=== PATIENT | male | born 1960 | race Hispanic/Latino ===

== ENCOUNTER 2018-07-15 15:13 | Inpatient (IN) | payer SELFPAY ==
[2018-07-15] MEDS ORDERED: DUONEB *Not for PRN Use IH ONE ×3 (15:30→15:33)
[2018-07-15] MEDS ORDERED: SOLU-Medrol IV ONE (15:58)
[2018-07-15] MEDS ORDERED: MAGNESIUM SULFATE 2GM/50ML 2 GM/50 ML BAG IV ONE (15:58)
--- NOTE | 2018-07-15 16:01 | Emergency Department Report ---
ED Shortness of Breath HPI - General Chief Complaint: Dyspnea/Respdistress Stated Complaint: SAYRA Time Seen by Provider: 07/15/18 15:30 Source: patient Mode of arrival: Ambulatory Limitations: No Limitations - History of Present Illness Initial Comments: 58-year-old male with no significant past medical history versus possible complaints of wheezing, cough, shortness of breath progressively worsening 2 days. Patient does smoke cigarettes daily. Complains of a cough productive of brown sputum. He denies fever, hemoptysis, calf tenderness, or leg edema. He does not have a primary care doctor and has not seen a physician in many years. - Related Data Allergies Allergy/AdvReac Type Severity Reaction Status Date / Time No Known Allergies Allergy Unverified 07/15/18 15:15 ED Review of Systems ROS: Stated complaint: SAYRA Other details as noted in HPI Comment: All other systems reviewed and negative ED Past Medical Hx - Past Medical History Previous Medical History?: No - Social History Smoking Status: Current Every Day Smoker ED Physical Exam - General Limitations: No Limitations - Other Other exam information: General: No limitations, patient is alert in no acute distress Head exam: Atraumatic, normocephalic Eyes exam: Normal appearance ENT: Moist mucous membrane Neck exam: Normal inspection, full range of motion, no meningismus nontender Respiratory exam: Tachypnea, wheezing, accessory muscle use Cardiovascular: Normal rate and rhythm, normal heart sounds Abdomen: Soft, nondistended, and nontender, with normal bowel sounds, no rebound, or guarding Extremity: Full range of motion normal inspection no deformity, tenderness or edema Back: Normal Inspection, full range of motion, no tenderness Neurologic: Alert, oriented x3, cranial nerves intact, no motor or sensory deficit Psychiatric: normal affect, normal mood Skin: Warm, dry, intact ED Course Vital Signs 07/15/18 07/15/18 07/15/18 15:36 15:45 15:55 Temperature 98.0 F Pulse Rate 87 75 Pulse Rate [ 76 Anterior Bilateral Throughout] Respiratory 24 18 Rate Respiratory 25 H Rate [Anterior Bilateral Throughout] Blood Pressure Blood Pressure 142/102 [Right] O2 Sat by Pulse 94 Oximetry 07/15/18 07/15/18 07/15/18 16:00 16:02 16:15 Temperature Pulse Rate 74 72 Pulse Rate [ 72 Anterior Bilateral Throughout] Respiratory 21 24 Rate Respiratory 22 Rate [Anterior Bilateral Throughout] Blood Pressure 119/99 119/99 Blood Pressure [Right] O2 Sat by Pulse 100 99 Oximetry 07/15/18 07/15/18 07/15/18 16:30 16:45 17:00 Temperature Pulse Rate 70 71 67 Pulse Rate [ Anterior Bilateral Throughout] Respiratory 24 23 28 H Rate Respiratory Rate [Anterior Bilateral Throughout] Blood Pressure 129/94 129/94 137/86 Blood Pressure [Right] O2 Sat by Pulse 97 98 95 Oximetry 07/15/18 07/15/18 17:15 17:29 Temperature Pulse Rate 94 H 78 Pulse Rate [ Anterior Bilateral Throughout] Respiratory 26 H 17 Rate Respiratory Rate [Anterior Bilateral Throughout] Blood Pressure 129/94 165/105 Blood Pressure [Right] O2 Sat by Pulse 97 99 Oximetry ED Medical Decision Making - Lab Data Result diagrams: 07/15/18 15:41 07/15/18 15:41 Lab Results 07/15/18 07/15/18 07/15/18 Range/Units 15:41 15:41 15:41 WBC 4.1 L (4.5-11.0) K/mm3 RBC 4.50 (3.65-5.03) M/mm3 Hgb 14.4 (11.8-15.2) gm/dl Hct 42.1 (35.5-45.6) % MCV 93 (84-94) fl MCH 32 (28-32) pg MCHC 34 (32-34) % RDW 13.6 (13.2-15.2) % Plt Count 102 L (140-440) K/mm3 Lymph % (Auto) 14.0 (13.4-35.0) % [place] % (Auto) 10.1 H (0.0-7.3) % Eos % (Auto) 1.6 (0.0-4.3) % Baso % (Auto) 0.7 (0.0-1.8) % Lymph # 0.6 L (1.2-5.4) K/mm3 [place] # 0.4 (0.0-0.8) K/mm3 Eos # 0.1 (0.0-0.4) K/mm3 Baso # 0.0 (0.0-0.1) K/mm3 Seg Neutrophils % 73.6 H (40.0-70.0) % Seg Neutrophils # 3.0 (1.8-7.7) K/mm3 PT 14.0 (12.2-14.9) Sec. INR 1.02 (0.87-1.13) APTT 24.5 (24.2-36.6) Sec. Sodium 141 (137-145) mmol/L Potassium 3.6 (3.6-5.0) mmol/L Chloride 106.1 (98-107) mmol/L Carbon Dioxide 26 (22-30) mmol/L Anion Gap 13 mmol/L BUN 11 (9-20) mg/dL Creatinine 0.6 L (0.8-1.5) mg/dL Estimated GFR > 60 ml/min BUN/Creatinine Ratio 18 % Glucose 101 H (75-100) mg/dL Calcium 8.4 (8.4-10.2) mg/dL Total Bilirubin 1.50 H (0.1-1.2) mg/dL AST 52 H (5-40) units/L ALT 41 (7-56) units/L Alkaline Phosphatase 128 (35-129) units/L Troponin T < 0.010 (0.00-0.029) ng/mL Total Protein 6.8 (6.3-8.2) g/dL Albumin 3.4 L (3.9-5) g/dL Albumin/Globulin Ratio 1.0 % - EKG Data -: EKG Interpreted by Me EKG shows normal: sinus rhythm, axis (qrs 10), QRS complexes (qrs 10), ST-T waves (no stemi) Rate: normal (65) - Radiology Data Radiology results: report reviewed PROCEDURE: XR CHEST 1V AP TECHNIQUE: Single AP chest HISTORY: SOB, COPD, cough COMPARISONS: No prior radiographs FINDINGS: Cardiomediastinal silhouette is within normal limits. There is no evidence of airspace consolidation or pleural effusions. The pulmonary vasculature is within normal limits. IMPRESSION: No radiographic evidence of acute disease.. - Medical Decision Making wheeze + smoker, diag copd/acute bronchitis continued wheeze despite ed tx plan to admit tx with solumedrol, mag, albuterol, atrovent, azithromycin. - Differential Diagnosis pneumonia, bronchitis, COPD Critical Care Time: No Critical care attestation.: If time is entered above; I have spent that time in minutes in the direct care of this critically ill patient, excluding procedure time. ED Disposition Clinical Impression: Acute bronchitis, Smoker, Wheezing Disposition: OP ADMIT IP TO THIS HOSP Is pt being admited?: Yes Condition: Stable Time of Disposition: 18:28 (DR Dudley/hosp)
[2018-07-15 16:13] LABS: Basophils % (Auto) 0.7 % (0.0-1.8); Eosinophils # (Auto) 0.1 K/mm3 (0.0-0.4); Eosinophils % (Auto) 1.6 % (0.0-4.3); Hematocrit 42.1 % (35.5-45.6); Hemoglobin 14.4 gm/dl (11.8-15.2); Lymphocytes # (Auto) 0.6 K/mm3 (1.2-5.4); Mean Corpuscular HGB Conc 34 % (32-34); Mean Corpuscular Volume 93 fl (84-94); Monocytes # (Auto) 0.4 K/mm3 (0.0-0.8); Monocytes % (Auto) 10.1 % (0.0-7.3); Platelet Count 102 K/mm3 (140-440); Red Cell Distribution Width 13.6 % (13.2-15.2)
--- NOTE | 2018-07-15 16:21 | XRay Report ---
PROCEDURE: XR CHEST 1V AP TECHNIQUE: Single AP chest HISTORY: SOB, COPD, cough COMPARISONS: No prior radiographs FINDINGS: Cardiomediastinal silhouette is within normal limits. There is no evidence of airspace consolidation or pleural effusions. The pulmonary vasculature is within normal limits. IMPRESSION: No radiographic evidence of acute disease.. This document is electronically signed by Tam Mirza MD., July 15 2018 04:19:37 PM ET
[2018-07-15 16:22] LABS: INR 1.02 (0.87-1.13); Partial Thromboplastin Time 24.5 Sec. (24.2-36.6)
[2018-07-15 16:30] LABS: Alanine Aminotransferase 41 units/L (7-56); Albumin 3.4 g/dL (3.9-5); BUN/Creatinine Ratio 18; Blood Urea Nitrogen 11 mg/dL (9-20); Calcium 8.4 mg/dL (8.4-10.2); Hemolysis Index 20
[2018-07-15] MEDS ORDERED: PROVENTIL IH ONE (18:22)
[2018-07-15] MEDS ORDERED: TYLENOL PO PRN (22:56)
[2018-07-15] MEDS ORDERED: ZOFRAN IV PRN (22:57)
[2018-07-15] MEDS ORDERED: RESTORIL PO PRN (22:58)
[2018-07-15] MEDS: SOLU-Medrol IV SCH (23:24)
[2018-07-16] MEDS: DUONEB *Not for PRN Use IH SCH ×7 (02:14→23:46)
[2018-07-16] MEDS: SOLU-Medrol IV SCH ×3 (05:30→22:08)
--- NOTE | 2018-07-16 08:00 | History and Physical Report ---
CHIEF COMPLAINT: Shortness of breath. Other complaints include wheezing and cough. HISTORY OF PRESENT ILLNESS: The patient is a 58-year-old male, who presented to the Emergency Room with complaint of shortness of breath and audible wheezing with cough going on for 2 days. The patient's cough is productive of brown sputum. There was no history of chest pain, no history of fever or chills and no history of nausea or vomiting or swelling in the ankles. The patient is a daily cigarette smoker. PAST MEDICAL HISTORY: Unremarkable. PAST SURGICAL HISTORY: Unremarkable. FAMILY HISTORY: Family history is noncontributory. SOCIAL HISTORY: The patient says he walks in a cooler that stays always at about 40 degrees Fahrenheit and smokes cigarette daily and does not use illicit drugs, is not known whether the patient drinks alcohol. MEDICATIONS: The patient states he said he uses his son's nebulizer since his shortness of breath has been going on and also uses [id number] medications. ALLERGIES: There are no known drug allergies. REVIEW OF SYSTEMS: CONSTITUTIONAL: There is no fever, no chills, no diaphoresis. HEENT: There is no headache or sore throat. CARDIOVASCULAR SYSTEM: There is no chest pain or orthopnea. RESPIRATORY SYSTEM: Shortness of breath is present. Cough is present. GASTROINTESTINAL SYSTEM: There is no nausea, no vomiting, no abdominal pain, diarrhea or constipation. NEUROLOGICAL SYSTEM: There is no numbness, no dizziness, no altered mental status. MUSCULOSKELETAL SYSTEM: There is no joint pain or swelling. DERMATOLOGICAL SYSTEM: There is no skin rash or itching. GENITOURINARY SYSTEM: There is no dysuria, hematuria or flank pain. Rest of system review is normal. PHYSICAL EXAMINATION: GENERAL: At the time of exam, the patient was found to be alert, oriented x 3 and in mild to moderate distress due to shortness of breath and wheezing. VITAL SIGNS: At the initial time of presentation showed temperature of 98 degrees Fahrenheit, pulse of 87, respirations 24, blood pressure 142/102, O2 sat of 94% on room air. HEENT: Show pupils to be equal, round, reactive to light and accommodating. Extraocular muscles are intact. NECK: Neck is supple with no JVD or carotid bruit. CARDIOVASCULAR SYSTEM: Show normal first and second heart sounds with no gallops or murmurs. RESPIRATORY SYSTEM: Showed reduced air entry on both sides of the lung with audible expiratory wheezing. There is no use of accessory respiratory muscles. GASTROINTESTINAL SYSTEM: Show abdomen to be full, soft, nontender with no organomegaly or rigidity. NEUROLOGIC: Shows no focal deficits. MUSCULOSKELETAL SYSTEM: Show no joint swelling or tenderness. DERMATOLOGICAL SYSTEM: Show no skin rash. GENITOURINARY SYSTEM: Show no cause of costovertebral angle tenderness. PERTINENT LABORATORY DATA AND IMAGING STUDIES: The patient had a chest done that shows no acute cardiopulmonary lesions. The patient's CBC showed low white count of 4.1 with normal hemoglobin and normal hematocrit. CBC differential showed elevated segmented neutrophil count of 73.6%. Coagulation studies were unremarkable. The patient's chemistry shows slightly elevated total bilirubin of 1.5 with liver transaminases showing high AST of 52 and normal ALT of 41. Rest of the patient's chemistry showed a low albumin level of 3.4. DIAGNOSES: 1. Acute bronchitis. 2. Dyspnea. PLAN OF CARE: 1. The patient will be admitted to medical floor, on remote telemetry. 2. The patient will be on IV ceftriaxone 1 gram daily and IV Zithromax 500 mg daily. 3. The patient will be on DuoNeb nebulizer q.i.d. and will be on IV Solu-Medrol 60 mg q. 8 hours. 4. The patient will be on p.r.n. medications like Tylenol 650 mg by mouth every 4 hours for fever and headache and IV Zofran 4 mg every 8 hours for nausea and vomiting, also the patient will be on temazepam or Restoril 15 mg at bedtime for insomnia. 5. The patient will be on Robitussin-DM 10 mL every 4 hours as needed for cough and will be on oxygen by nasal cannula at 2 liters per minute. 6. The patient's diet will be regular diet. 7. The patient's DVT prophylaxis will be through heparin 5000 units subcutaneous q. 12 and sequential compressive device applied to the lower extremity. JOB# [id number] OCN/NTS
[2018-07-16] MEDS: HEPARIN SUB-Q SCH ×2 (10:00→10:19)
[2018-07-16] MEDS: ROCEPHIN/NS 1 GM/50 ML 1 GM/50 ML BAG IV SCH (10:20)
[2018-07-16] MEDS: HABITROL TD SCH (10:39)
[2018-07-16] MEDS: ZITHROMAX 500 MG in NACL 0.9% 250ML 250 ML IV SCH (11:41)
--- NOTE | 2018-07-16 13:38 | Progress Note ---
Assessment and Plan Assessment and plan: Patient is 58 yo man with history of tobacco dependency and asthma who presented to [facility] ED with cough, sob and wheezing. He lost his 5 months ago and has moved in with his brother. He has a nebulizer at home but it was not working. He does not have O2 -Acute brochospasm, suspected AE COPD vs asthma: treat with iv steroids, iv abx, nebs, consulted Pulmonology -Tobacco dependency: drug and alcohol counsellor on stopping and offered nicotine patch -Thrombocytopenia with elevated isolated AST and high bilirubin, normal coags: consulted GI and get liver ultrasound, check hepatitis panel also -Severe foot callus, public health training assistant evaluated and recommended branch employment coordinator and I placed a consult to Dr. Pierre and Dr. Trujillo History Interval history: Patient was seen and examined. Follow-up on current diagnosis of sob. Overnight uneventful. Patient denies any chest pain, nausea/vomiting or severe headaches. Imaging, nursing note, chart, labs and old chart reviewed. Discussed with patient. Hospitalist Physical - Physical exam Narrative exam: GEN: WDWN, NAD, Awake, Alert, Orientated HEENT: NCAT, EOMI, PERRL, OP Clear NECK: supple, no adenopathy, no thyromegaly, no JVD CVS/HEART: RRR, normal S1S2, pulses present bilaterally CHEST/LUNGS: diminished bs bilateral, bilateral wheezing, Symmetrical chest expansion, good air entry bilaterally GI/Abdomen: soft, NTND, good bowel sounds, no guarding or rebound /Bladder: no suprapubic tenderness, no CVA or paraspinal tenderness EXT/Skin: foot callus MSK: FROM x 4 Neuro: CN 2-12 grossly intact, no new focal deficits Psych: calm - Constitutional Vitals: Temp Pulse Resp BP Pulse Ox 98.0 F 100 H 22 149/96 94 07/16/18 11:22 07/16/18 11:22 07/16/18 11:22 07/16/18 11:22 07/16/18 11:22 Results - Labs CBC & Chem 7: 07/15/18 15:41 07/15/18 15:41 Labs: Laboratory Last Values WBC 4.1 K/mm3 (4.5-11.0) L 07/15/18 15:41 RBC 4.50 M/mm3 (3.65-5.03) 07/15/18 15:41 Hgb 14.4 gm/dl (11.8-15.2) 07/15/18 15:41 Hct 42.1 % (35.5-45.6) 07/15/18 15:41 MCV 93 fl (84-94) 07/15/18 15:41 MCH 32 pg (28-32) 07/15/18 15:41 MCHC 34 % (32-34) 07/15/18 15:41 RDW 13.6 % (13.2-15.2) 07/15/18 15:41 Plt Count 102 K/mm3 (140-440) L 07/15/18 15:41 Lymph % (Auto) 14.0 % (13.4-35.0) 07/15/18 15:41 [place] % (Auto) 10.1 % (0.0-7.3) H 07/15/18 15:41 Eos % (Auto) 1.6 % (0.0-4.3) 07/15/18 15:41 Baso % (Auto) 0.7 % (0.0-1.8) 07/15/18 15:41 Lymph # 0.6 K/mm3 (1.2-5.4) L 07/15/18 15:41 [place] # 0.4 K/mm3 (0.0-0.8) 07/15/18 15:41 Eos # 0.1 K/mm3 (0.0-0.4) 07/15/18 15:41 Baso # 0.0 K/mm3 (0.0-0.1) 07/15/18 15:41 Seg Neutrophils % 73.6 % (40.0-70.0) H 07/15/18 15:41 Seg Neutrophils # 3.0 K/mm3 (1.8-7.7) 07/15/18 15:41 PT 14.0 Sec. (12.2-14.9) 07/15/18 15:41 INR 1.02 (0.87-1.13) 07/15/18 15:41 APTT 24.5 Sec. (24.2-36.6) 07/15/18 15:41 Sodium 141 mmol/L (137-145) 07/15/18 15:41 Potassium 3.6 mmol/L (3.6-5.0) 07/15/18 15:41 Chloride 106.1 mmol/L (98-107) 07/15/18 15:41 Carbon Dioxide 26 mmol/L (22-30) 07/15/18 15:41 Anion Gap 13 mmol/L 07/15/18 15:41 BUN 11 mg/dL (9-20) 07/15/18 15:41 Creatinine 0.6 mg/dL (0.8-1.5) L 07/15/18 15:41 Estimated GFR > 60 ml/min 07/15/18 15:41 BUN/Creatinine Ratio 18 % 07/15/18 15:41 Glucose 101 mg/dL (75-100) H 07/15/18 15:41 Calcium 8.4 mg/dL (8.4-10.2) 07/15/18 15:41 Total Bilirubin 1.50 mg/dL (0.1-1.2) H 07/15/18 15:41 AST 52 units/L (5-40) H 07/15/18 15:41 ALT 41 units/L (7-56) 07/15/18 15:41 Alkaline Phosphatase 128 units/L (35-129) 07/15/18 15:41 Troponin T < 0.010 ng/mL (0.00-0.029) 07/15/18 15:41 Total Protein 6.8 g/dL (6.3-8.2) 07/15/18 15:41 Albumin 3.4 g/dL (3.9-5) L 07/15/18 15:41 Albumin/Globulin Ratio 1.0 % 07/15/18 15:41
[2018-07-16 16:41] LABS: Hepatitis C Virus Antibody Reactive (NonReactive)
--- NOTE | 2018-07-17 00:48 | Consultation ---
REFERRING PHYSICIAN: José Cox MD INDICATION: Increased liver function tests. HISTORY OF PRESENT ILLNESS: The patient is a 58-year-old white male, who was admitted for shortness of breath and cough. The patient reports known history of liver disease and denies history of chronic risk factors for liver disease including IV drug abuse. He reports no family history of liver disease. The patient subsequently came and was admitted for non-GI or liver related complaints, but GI is consulted for increased liver function test. PAST MEDICAL HISTORY: Negative. MEDICATIONS: Reviewed and updated in chart. SOCIAL HISTORY: Positive smoker and social alcohol. ALLERGIES: No known drug allergies. FAMILY HISTORY: Negative for colon cancer. REVIEW OF SYSTEMS: GENERAL: Reports weakness. HEENT: No visual complaints or tinnitus. PULMONARY: Reports shortness of breath, cough, and chest pain. GASTROINTESTINAL: Reports no complaints. All points of 13-point review of systems otherwise negative. PHYSICAL EXAMINATION: VITAL SIGNS: Temperature of 98.0, pulse 100, respirations 20, blood pressure 149/80. GENERAL: Fairly nourished male in no acute distress. HEENT: Pupils are equal, round and reactive. PULMONARY: Clear to auscultation bilaterally. CARDIOVASCULAR: Regular rate and rhythm. Normal S1 and S2. ABDOMEN: Positive bowel sounds, soft. SKIN: No obvious rashes. LABORATORY DATA: Pertinent for white count of 4, hemoglobin and hematocrit of 14.4 and 42.1, platelet count of 102. Coags within normal limits. Chem-7 within normal limits. ASSESSMENT: A 58-year-old male, admitted for cough, shortness of breath, now being seen by GI for slight increased LFTs with AST and ALT of 52 and 41 with a total bilirubin of 1.5. Possible fatty liver disease with no obvious signs of severe cirrhosis or other liver problems, though possible. Either way, the patient's management can be completed as an outpatient. PLAN: 1. We will get hepatitis-related serologies. 2. Liver ultrasound. 3. Avoid hepatotoxic drugs. 4. We will follow up on these results with the patient, told to make a followup appointment in the office after discharge for further evaluation. 5. Given stability from gastrointestinal and liver standpoint, we will complete workup as an outpatient, we will sign off, call if needed. JOB# [id number] CAB/NTS
[2018-07-17] MEDS: DUONEB *Not for PRN Use IH SCH ×3 (03:37→12:45)
[2018-07-17] MEDS: SOLU-Medrol IV SCH ×3 (06:00→22:41)
--- NOTE | 2018-07-17 08:40 | Progress Note ---
Assessment and Plan Assessment and plan: Patient is 58 yo man with history of tobacco dependency and asthma who presented to [facility] ED with cough, sob and wheezing. He lost his 5 months ago and has moved in with his brother. He has a nebulizer at home but it was not working. He does not have O2 -Acute brochospasm, suspected AE COPD vs asthma: treat with iv steroids, iv abx, nebs, consulted Pulmonology -Tobacco dependency: elder counselor on stopping and offered nicotine patch -Thrombocytopenia with elevated isolated AST and high bilirubin, normal coags: consulted GI and get liver ultrasound, check hepatitis panel also -Severe foot callus, shoemaker apprentice evaluated and recommended histology assistant and I placed a consult to Dr. Pierre and Dr. Trujillo Hepatitis C positive: GI to manage Liver u/s done but not read Podiatry, Ortho and Pulmonology hasn't seen yet History Interval history: Patient was seen and examined. Follow-up on current diagnosis of sob. Overnight uneventful. Patient denies any chest pain, nausea/vomiting or severe headaches. Imaging, nursing note, chart, labs and old chart reviewed. Discussed with patient. Hospitalist Physical - Physical exam Narrative exam: GEN: WDWN, NAD, Awake, Alert, Orientated HEENT: NCAT, EOMI, PERRL, OP Clear NECK: supple, no adenopathy, no thyromegaly, no JVD CVS/HEART: RRR, normal S1S2, pulses present bilaterally CHEST/LUNGS: diminished bs bilateral, bilateral wheezing, Symmetrical chest expansion, good air entry bilaterally GI/Abdomen: soft, NTND, good bowel sounds, no guarding or rebound /Bladder: no suprapubic tenderness, no CVA or paraspinal tenderness EXT/Skin: foot callus MSK: FROM x 4 Neuro: CN 2-12 grossly intact, no new focal deficits Psych: calm - Constitutional Vitals: Temp Pulse Resp BP Pulse Ox 98.3 F 90 20 128/78 96 07/17/18 05:26 07/17/18 05:26 07/17/18 05:26 07/17/18 05:26 07/17/18 05:26 Results - Labs CBC & Chem 7: 07/15/18 15:41 07/15/18 15:41 Labs: Laboratory Last Values WBC 4.1 K/mm3 (4.5-11.0) L 07/15/18 15:41 RBC 4.50 M/mm3 (3.65-5.03) 07/15/18 15:41 Hgb 14.4 gm/dl (11.8-15.2) 07/15/18 15:41 Hct 42.1 % (35.5-45.6) 07/15/18 15:41 MCV 93 fl (84-94) 07/15/18 15:41 MCH 32 pg (28-32) 07/15/18 15:41 MCHC 34 % (32-34) 07/15/18 15:41 RDW 13.6 % (13.2-15.2) 07/15/18 15:41 Plt Count 102 K/mm3 (140-440) L 07/15/18 15:41 Lymph % (Auto) 14.0 % (13.4-35.0) 07/15/18 15:41 [place] % (Auto) 10.1 % (0.0-7.3) H 07/15/18 15:41 Eos % (Auto) 1.6 % (0.0-4.3) 07/15/18 15:41 Baso % (Auto) 0.7 % (0.0-1.8) 07/15/18 15:41 Lymph # 0.6 K/mm3 (1.2-5.4) L 07/15/18 15:41 [place] # 0.4 K/mm3 (0.0-0.8) 07/15/18 15:41 Eos # 0.1 K/mm3 (0.0-0.4) 07/15/18 15:41 Baso # 0.0 K/mm3 (0.0-0.1) 07/15/18 15:41 Seg Neutrophils % 73.6 % (40.0-70.0) H 07/15/18 15:41 Seg Neutrophils # 3.0 K/mm3 (1.8-7.7) 07/15/18 15:41 PT 14.0 Sec. (12.2-14.9) 07/15/18 15:41 INR 1.02 (0.87-1.13) 07/15/18 15:41 APTT 24.5 Sec. (24.2-36.6) 07/15/18 15:41 Sodium 141 mmol/L (137-145) 07/15/18 15:41 Potassium 3.6 mmol/L (3.6-5.0) 07/15/18 15:41 Chloride 106.1 mmol/L (98-107) 07/15/18 15:41 Carbon Dioxide 26 mmol/L (22-30) 07/15/18 15:41 Anion Gap 13 mmol/L 07/15/18 15:41 BUN 11 mg/dL (9-20) 07/15/18 15:41 Creatinine 0.6 mg/dL (0.8-1.5) L 07/15/18 15:41 Estimated GFR > 60 ml/min 07/15/18 15:41 BUN/Creatinine Ratio 18 % 07/15/18 15:41 Glucose 101 mg/dL (75-100) H 07/15/18 15:41 Calcium 8.4 mg/dL (8.4-10.2) 07/15/18 15:41 Total Bilirubin 1.50 mg/dL (0.1-1.2) H 07/15/18 15:41 AST 52 units/L (5-40) H 07/15/18 15:41 ALT 41 units/L (7-56) 07/15/18 15:41 Alkaline Phosphatase 128 units/L (35-129) 07/15/18 15:41 Troponin T < 0.010 ng/mL (0.00-0.029) 07/15/18 15:41 Total Protein 6.8 g/dL (6.3-8.2) 07/15/18 15:41 Albumin 3.4 g/dL (3.9-5) L 07/15/18 15:41 Albumin/Globulin Ratio 1.0 % 07/15/18 15:41 Hepatitis A IgM Ab Non-reactive (NonReactive) 07/16/18 15:33 Hep B Core IgM Ab Non-reactive (NonReactive) 07/16/18 15:33 Hepatitis C Antibody Reactive (NonReactive) A 07/16/18 15:33
--- NOTE | 2018-07-17 10:50 | Ultrasound Report ---
PROCEDURE: US ABDOMEN LIMITED TECHNIQUE: Mitchell scale images were obtained of the right upper quadrant. HISTORY: liver disease COMPARISONS: None FINDINGS: Liver is normal in echotexture with no abnormal liver mass. Proximal aorta measures 2.8 cm. Gallbladder is surgically absent. CBD measures 1.8 mm in thickness. Right kidney normal in echotexture and measures 11.5 x 4.6 x 5.1 cm. No free fluid in the right upper quadrant. IMPRESSION: 1. Prior cholecystectomy, otherwise unremarkable study.. This document is electronically signed by Jen Young MD., July 17 2018 10:48:33 AM ET
[2018-07-17] MEDS: ROCEPHIN/NS 1 GM/50 ML 1 GM/50 ML BAG IV SCH (11:40)
[2018-07-17] MEDS: HABITROL TD SCH (11:49)
[2018-07-17] MEDS: ZITHROMAX 500 MG in NACL 0.9% 250ML 250 ML IV SCH (11:50)
--- NOTE | 2018-07-17 14:22 | Consultation ---
History of Present Illness Consult date: 07/17/18 Requesting physician: KATH MCKEON Reason for consult: COPD History of present illness: 58 y/o male admitted for COPD exacerbation. Patient is currently still smoking and has no plans on quitting. He is very depressed and speaking tangentially. He has never seen a lung physician, and takes no meds for breathing. Primary asked us to consult. Past History Past Medical History: No medical history Past Surgical History: No surgical history Social history: smoking, other ( but recently, now lives with brother, very depressed) Medications and Allergies Allergies Allergy/AdvReac Type Severity Reaction Status Date / Time No Known Allergies Allergy Unverified 07/15/18 15:15 Home Medications Medication Instructions Recorded Confirmed Last Taken Type No Known Home Medications [No 07/15/18 07/15/18 Unknown History Reported Home Medications] Active Meds: Active Medications Acetaminophen (Tylenol) 650 mg PO Q4H PRN PRN Reason: Fever >101 Albuterol/Ipratropium (Duoneb *Not For Prn Use*) 1 ampul IH Q4HRT [facility] Last Admin: 07/17/18 12:45 Dose: 1 ampul Documented by: Guaifenesin (Guaifenesin Dm Syrup) 10 ml PO Q4H PRN PRN Reason: Cough Last Admin: 07/16/18 22:08 Dose: 10 ml Documented by: Azithromycin 500 mg/ Sodium (Chloride) 250 mls @ 250 mls/hr IV Q24HR [facility] Last Admin: 07/17/18 11:50 Dose: 250 mls/hr Documented by: Ceftriaxone Sodium (Rocephin/Ns 1 Gm/50 Ml) 1 gm in 50 mls @ 100 mls/hr IV Q24HR [facility]; Protocol Last Admin: 07/17/18 11:40 Dose: 100 mls/hr Documented by: Methylprednisolone Sodium Succinate (Solu-Medrol) 60 mg IV Q8HR [facility] Last Admin: 07/17/18 06:00 Dose: 60 mg Documented by: Nicotine (Habitrol) 14 mg TD QDAY [facility] Last Admin: 07/17/18 11:49 Dose: 14 mg Documented by: Ondansetron HCl (Zofran) 4 mg IV Q8H PRN PRN Reason: Nausea And Vomiting Review of Systems All systems: negative Physical Examination Vital signs: Vital Signs Pulse Resp 76 25 H 07/15/18 15:36 07/15/18 15:36 General appearance: alert, other (dishelved) Eyes: non-icteric ENT: oropharynx dry Neck: supple Effort: normal Ascultation: Bilateral: wheezes Percussion: Bilateral: not dull Tactile fremitus: Bilateral: normal Cardiovascular: regular rate and rhythm Gastrointestinal: normoactive bowel sounds, soft Results - Laboratory Findings CBC and BMP: 07/15/18 15:41 07/15/18 15:41 PT/INR, D-dimer PT 14.0 Sec. (12.2-14.9) 07/15/18 15:41 INR 1.02 (0.87-1.13) 07/15/18 15:41 Abnormal lab findings: Abnormal Labs 07/15/18 07/15/18 07/16/18 15:41 15:41 15:33 WBC 4.1 L Plt Count 102 L [place] % (Auto) 10.1 H Lymph # 0.6 L Seg Neutrophils % 73.6 H Creatinine 0.6 L Glucose 101 H Total Bilirubin 1.50 H AST 52 H Albumin 3.4 L Hepatitis C Antibody Reactive A - Diagnostic Findings Chest x-ray: image reviewed (clear) Assessment and Plan 58 y/o male with likely COPD and COPD exacerbation still smoking and possibly suffering from depression 1. Agree with current medical therapy for COPD. 2. Will roselia ryanb to PRN and add BID pulmicort and brovana 3. SMoking cessation 4. Suggest Psych consult for possible depression
[2018-07-17] MEDS ORDERED: DUONEB *Not for PRN Use IH (14:26)
[2018-07-17] MEDS: BROVANA NEBU IH SCH (19:55)
[2018-07-17] MEDS: PULMICORT IH SCH (19:55)
[2018-07-17] MEDS ORDERED: AMBIEN PO ONE (22:00)
[2018-07-18 06:09] LABS: Hemoglobin 13.6 gm/dl (11.8-15.2); Mean Corpuscular HGB Conc 34 % (32-34); Mean Corpuscular Volume 94 fl (84-94); Platelet Count 108 K/mm3 (140-440); Red Blood Count 4.24 M/mm3 (3.65-5.03); Red Cell Distribution Width 13.8 % (13.2-15.2)
[2018-07-18] MEDS: SOLU-Medrol IV SCH ×3 (06:20→22:20)
[2018-07-18 06:28] LABS: Alanine Aminotransferase 35 units/L (7-56); Albumin 3.2 g/dL (3.9-5); BUN/Creatinine Ratio 37; Blood Urea Nitrogen 22 mg/dL (9-20); Calcium 8.4 mg/dL (8.4-10.2); Hemolysis Index 5
--- NOTE | 2018-07-18 07:37 | Progress Note ---
Assessment and Plan Assessment and plan: Patient is 58 yo man with history of tobacco dependency and asthma who presented to [facility] ED with cough, sob and wheezing. He lost his 5 months ago and has moved in with his brother. He has a nebulizer at home but it was not working. He does not have O2. -Acute brochospasm, suspected AE COPD: treat with iv steroids, iv abx, nebs, Pulmonology evaluated -Tobacco dependency: counseling program leader on stopping and offered nicotine patch -Thrombocytopenia with elevated isolated AST and high bilirubin, normal coags: GI evaluated -Severe foot callus with gait abnormality due to discomfort, job hand evaluated and recommended motor tester and I placed a consult to Dr. Pierre and Dr. Trujillo, consult PT/OT -Elevated LFTs: evaluated by GI -Hepatitis C: GI to follow up per their note -Depression vs grief reaction as 5 months ago and he moved in with his brother: consulted Mental Health/psych Hepatitis C positive: GI to manage Liver u/s unremarkable Podiatry, Ortho hasn't seen yet==>will inquire History Interval history: Patient was seen and examined. Follow-up on current diagnosis of presumed COPD. Overnight uneventful. Patient denies any chest pain, nausea/vomiting or severe headaches. Imaging, nursing note, chart, labs and old chart reviewed. Discussed with patient. Hospitalist Physical - Physical exam Narrative exam: GEN: WDWN, NAD, Awake, Alert, Orientated HEENT: NCAT, EOMI, PERRL, OP Clear NECK: supple, no adenopathy, no thyromegaly, no JVD CVS/HEART: RRR, normal S1S2, pulses present bilaterally CHEST/LUNGS: diminished bs bilateral, bilateral wheezing, Symmetrical chest expansion, good air entry bilaterally GI/Abdomen: soft, NTND, good bowel sounds, no guarding or rebound /Bladder: no suprapubic tenderness, no CVA or paraspinal tenderness EXT/Skin: foot callus MSK: FROM x 4 Neuro: CN 2-12 grossly intact, no new focal deficits Psych: calm - Constitutional Vitals: Temp Pulse Resp BP Pulse Ox 97.6 F 73 18 139/78 93 07/18/18 04:57 07/18/18 04:57 07/18/18 04:57 07/18/18 04:57 07/18/18 04:57 Results - Labs CBC & Chem 7: 07/18/18 05:27 07/18/18 05:27 Labs: Laboratory Last Values WBC 7.7 K/mm3 (4.5-11.0) 07/18/18 05:27 RBC 4.24 M/mm3 (3.65-5.03) 07/18/18 05:27 Hgb 13.6 gm/dl (11.8-15.2) 07/18/18 05:27 Hct 40.0 % (35.5-45.6) 07/18/18 05:27 MCV 94 fl (84-94) 07/18/18 05:27 MCH 32 pg (28-32) 07/18/18 05:27 MCHC 34 % (32-34) 07/18/18 05:27 RDW 13.8 % (13.2-15.2) 07/18/18 05:27 Plt Count 108 K/mm3 (140-440) L 07/18/18 05:27 Lymph % (Auto) 14.0 % (13.4-35.0) 07/15/18 15:41 [place] % (Auto) 10.1 % (0.0-7.3) H 07/15/18 15:41 Eos % (Auto) 1.6 % (0.0-4.3) 07/15/18 15:41 Baso % (Auto) 0.7 % (0.0-1.8) 07/15/18 15:41 Lymph # 0.6 K/mm3 (1.2-5.4) L 07/15/18 15:41 Greer # 0.4 K/mm3 (0.0-0.8) 07/15/18 15:41 Eos # 0.1 K/mm3 (0.0-0.4) 07/15/18 15:41 Baso # 0.0 K/mm3 (0.0-0.1) 07/15/18 15:41 Seg Neutrophils % 73.6 % (40.0-70.0) H 07/15/18 15:41 Seg Neutrophils # 3.0 K/mm3 (1.8-7.7) 07/15/18 15:41 PT 14.0 Sec. (12.2-14.9) 07/15/18 15:41 INR 1.02 (0.87-1.13) 07/15/18 15:41 APTT 24.5 Sec. (24.2-36.6) 07/15/18 15:41 Sodium 142 mmol/L (137-145) 07/18/18 05:27 Potassium 4.4 mmol/L (3.6-5.0) D 07/18/18 05:27 Chloride 106.2 mmol/L (98-107) 07/18/18 05:27 Carbon Dioxide 26 mmol/L (22-30) 07/18/18 05:27 Anion Gap 14 mmol/L 07/18/18 05:27 BUN 22 mg/dL (9-20) H 07/18/18 05:27 Creatinine 0.6 mg/dL (0.8-1.5) L 07/18/18 05:27 Estimated GFR > 60 ml/min 07/18/18 05:27 BUN/Creatinine Ratio 37 % 07/18/18 05:27 Glucose 143 mg/dL (75-100) H 07/18/18 05:27 Calcium 8.4 mg/dL (8.4-10.2) 07/18/18 05:27 Total Bilirubin 0.70 mg/dL (0.1-1.2) 07/18/18 05:27 AST 37 units/L (5-40) 07/18/18 05:27 ALT 35 units/L (7-56) 07/18/18 05:27 Alkaline Phosphatase 125 units/L (35-129) 07/18/18 05:27 Troponin T < 0.010 ng/mL (0.00-0.029) 07/15/18 15:41 Total Protein 6.0 g/dL (6.3-8.2) L 07/18/18 05:27 Albumin 3.2 g/dL (3.9-5) L 07/18/18 05:27 Albumin/Globulin Ratio 1.1 % 07/18/18 05:27 Hepatitis A IgM Ab Non-reactive (NonReactive) 07/16/18 15:33 Hep B Core IgM Ab Non-reactive (NonReactive) 07/16/18 15:33 Hepatitis C Antibody Reactive (NonReactive) A 07/16/18 15:33
[2018-07-18] MEDS: BROVANA NEBU IH SCH ×2 (08:55→20:35)
[2018-07-18] MEDS: PULMICORT IH SCH ×2 (08:55→20:35)
[2018-07-18] MEDS: ROCEPHIN/NS 1 GM/50 ML 1 GM/50 ML BAG IV SCH (10:11)
[2018-07-18] MEDS: ZITHROMAX PO SCH (10:11)
[2018-07-18] MEDS: HABITROL TD SCH (10:11)
[2018-07-18] MEDS ORDERED: RESTORIL PO PRN (22:00)
[2018-07-19] MEDS: SOLU-Medrol IV SCH ×2 (06:16→13:37)
[2018-07-19] MEDS: BROVANA NEBU IH SCH (07:36)
[2018-07-19] MEDS: PULMICORT IH SCH (07:36)
[2018-07-19] MEDS: ROCEPHIN/NS 1 GM/50 ML 1 GM/50 ML BAG IV SCH (09:50)
[2018-07-19] MEDS: HABITROL TD SCH (09:50)
[2018-07-19] MEDS: ZITHROMAX PO SCH (09:51)
[2018-07-19 12:35] VITALS: BP 144/97
--- NOTE | 2018-07-19 12:59 | Discharge Summary ---
Providers - Providers Date of Admission: 07/15/18 18:30 Date of discharge: 07/19/18 Attending physician: KATH MCKEON 07/16/18 07:02 Consult to Wound/ET Nurse [CONS] Stat Reason For Exam: wound eval 07/16/18 14:55 Consult to Physician [CONS] Routine Comment: Consulting Provider: GLENNY PIERRE Physician Instructions: Reason For Exam: painful foot callus 07/16/18 15:10 Consult to Physician [CONS] Routine Comment: Consulting Provider: JAMES TRUJILLO Physician Instructions: Reason For Exam: foot pains, painful callus 07/16/18 15:11 Consult to Physician [CONS] Routine Comment: Consulting Provider: LETICIA LOPEZ Physician Instructions: Reason For Exam: elevated bilirubin, ast, ?liver disease 07/16/18 15:15 Consult to Physician [CONS] Routine Comment: Consulting Provider: THERESE DOAN Physician Instructions: Reason For Exam: bronchospasm, ?asthma ?copd 07/18/18 07:07 Consult to Mental Health [CONS] Urgent Reason For Exam: psych Place consult to:: inside polisher safety person Notified:: awaiting call back Comment:: fax to [phone] 07/18/18 07:37 Occupational Therapy Evaluate and Treat [CONS] Routine Comment: Reason For Exam: ADLs evaluation Physical Therapy Evaluation and Treat [CONS] Routine Comment: Reason For Exam: gait evaluation/ambulatory dysfunction [facility] Condition: Stable Hospital course: Patient is 58 yo man with history of tobacco dependency and asthma who presented to [facility] ED with cough, sob and wheezing. He lost his 5 months ago and has moved in with his brother. He has a nebulizer at home but it was not working. He does not have O2. -Acute brochospasm, suspected AE COPD: treat with iv steroids, iv abx, nebs, Pulmonology evaluated -Tobacco dependency: patient financial counselor on stopping and offered nicotine patch -Thrombocytopenia with elevated isolated AST and high bilirubin, normal coags: GI evaluated -Severe foot callus with gait abnormality due to discomfort, industrial machinery mechanic evaluated and recommended dye stand loader and I placed a consult to Dr. Pierre and Dr. Trujillo, consult PT/OT -Elevated LFTs: evaluated by GI -Hepatitis C: GI to follow up per their note -Depression vs grief reaction as 5 months ago and he moved in with his brother: consulted Mental Health/psych Disposition: DC-01 TO HOME OR SELFCARE Time spent for discharge: 36 minutes Core Measure Documentation - Palliative Care Palliative Care/ Comfort Measures: Not Applicable - Core Measures Any of the following diagnoses?: none - VTE Discharge Requirements Deep Vein Thrombosis/Pulmonary Embolism Present on Admission: No Has pt received <5 days of overlap therapy or INR<2.0: No Anticoagulant overlap therapy prescribed at discharge: No Contraindication No Overlap Therapy order at DC: Not Indicated Exam - Physical Exam Narrative exam: GEN: WDWN, NAD, Awake, Alert, Orientated HEENT: NCAT, EOMI, PERRL, OP Clear NECK: supple, no adenopathy, no thyromegaly, no JVD CVS/HEART: RRR, normal S1S2, pulses present bilaterally CHEST/LUNGS: diminished bs bilateral, bilateral wheezing, Symmetrical chest expansion, good air entry bilaterally GI/Abdomen: soft, NTND, good bowel sounds, no guarding or rebound /Bladder: no suprapubic tenderness, no CVA or paraspinal tenderness EXT/Skin: foot callus MSK: FROM x 4 Neuro: CN 2-12 grossly intact, no new focal deficits Psych: calm - Constitutional Vitals: Temp Pulse Resp BP Pulse Ox 97.8 F 79 18 144/97 94 07/19/18 12:34 07/19/18 12:34 07/19/18 12:34 07/19/18 12:34 07/19/18 12:34 Plan Activity: other (no strenous activity) Diet: low salt Additional Instructions: Mental Health Referral Recommendations: 1.[facility] Service [facility]. Address: [address] [place] [address], [place] [address]. Hours: Open today 8AM 5PM. . 2.[place] [facility]. Hours: 24 Hours. Follow up with: MERRICK VICKERS MD [Primary Care Provider] - 7 Days MARYANNE VÁSQUEZ MD [Staff Physician] - 7 Days Prescriptions: Temazepam [Restoril] 15 mg PO QHS PRN #30 capsule PRN Reason: Sleep cefUROXime [Ceftin] 500 mg PO Q12H #8 tablet Ipratropium/Albuterol Sulfate [DUONEB *Not for PRN Use*] 1 ampul IH Q4HRT PRN #30 ampul.neb PRN Reason: Dyspnea guaiFENesin DM [Guaifenesin Dm Syrup] 10 ml PO Q4H PRN 5 Days #30 oral.liqd PRN Reason: Cough Nicotine [Habitrol] 14 mg TD QDAY #15 patch methylPREDNISolone [Medrol Dose Tomás] 1 dose PO QDAY #1 pack Budesonide [Pulmicort Respules] 0.5 mg IH Q12HRT #30 nebu
--- NOTE | 2018-07-19 14:56 | Progress Note ---
Assessment and Plan Imp: 1. Acute bronchitis 2. COPD exac. 3. Chronic nicotine dependence, cigarettes 4. Thrombocytopenia Rec: 1. Pulm-li he appears stable for discharge; would complete 5-7 days of antibiotics and send him out on a prednisone taper 2. He has a neb machine; would refill Duonebs 3. Stop smoking, has been counseled 4. Low platelets per IMS 5. Can f/u with us in 1-2 weeks Plan of care reviewed w/ patient, he understands/agrees Subjective Date of service: 07/19/18 Principal diagnosis: COPD exac. Interval history: No events. SOB and wheezing are improving. He is on RA. Has a cough w/o much sputum currently. Active Medications Acetaminophen (Tylenol) 650 mg PO Q4H PRN PRN Reason: Fever >101 Albuterol/Ipratropium (Duoneb *Not For Prn Use*) 1 ampul IH Q4HRT PRN PRN Reason: Dyspnea Arformoterol Tartrate (Brovana Nebu) 15 mcg IH Q12HRT [facility] Last Admin: 07/19/18 07:36 Dose: 15 mcg Documented by: Azithromycin (Zithromax) 500 mg PO Q24HR [facility] Last Admin: 07/19/18 09:51 Dose: 500 mg Documented by: Budesonide (Pulmicort) 0.5 mg IH Q12HRT [facility] Last Admin: 07/19/18 07:36 Dose: 0.5 mg Documented by: Guaifenesin (Guaifenesin Dm Syrup) 10 ml PO Q4H PRN PRN Reason: Cough Last Admin: 07/17/18 23:22 Dose: 10 ml Documented by: Ceftriaxone Sodium (Rocephin/Ns 1 Gm/50 Ml) 1 gm in 50 mls @ 100 mls/hr IV Q24HR [facility]; Protocol Last Admin: 07/19/18 09:50 Dose: 100 mls/hr Documented by: Methylprednisolone Sodium Succinate (Solu-Medrol) 60 mg IV Q8HR [facility] Last Admin: 07/19/18 13:37 Dose: 60 mg Documented by: Nicotine (Habitrol) 14 mg TD QDAY [facility] Last Admin: 07/19/18 09:50 Dose: 14 mg Documented by: Ondansetron HCl (Zofran) 4 mg IV Q8H PRN PRN Reason: Nausea And Vomiting Temazepam (Restoril) 15 mg PO QHS PRN PRN Reason: Sleep Last Admin: 07/18/18 22:19 Dose: 15 mg Documented by: Objective Vital Signs - 12hr 07/19/18 07/19/18 07/19/18 04:40 07:36 07:39 Temperature 97.2 F L Pulse Rate 65 Pulse Rate [ 75 Anterior Bilateral Throughout] Respiratory 24 Rate Respiratory 18 Rate [Anterior Bilateral Throughout] Blood Pressure 131/78 O2 Sat by Pulse 95 94 Oximetry 07/19/18 07/19/18 07:51 12:34 Temperature 97.8 F Pulse Rate 79 Pulse Rate [ 79 Anterior Bilateral Throughout] Respiratory 18 Rate Respiratory 18 Rate [Anterior Bilateral Throughout] Blood Pressure 144/97 O2 Sat by Pulse 94 Oximetry Constitutional: no acute distress, alert, other (disheveled) Eyes: non-icteric ENT: oropharynx moist Neck: supple Effort: normal Ascultation: Bilateral: wheezes Cardiovascular: regular rate and rhythm (no mrg) Gastrointestinal: normoactive bowel sounds, soft, non-tender, non-distended Integumentary: normal Extremities: no cyanosis, no edema, pink and warm Neurologic: normal mental status, non-focal exam, pupils equal and round, CN II- XII normal Psychiatric: mood appropriate, affect normal CBC and BMP: 07/18/18 05:27 07/18/18 05:27 ABG, PT/INR, D-dimer: PT/INR, D-dimer PT 14.0 Sec. (12.2-14.9) 07/15/18 15:41 INR 1.02 (0.87-1.13) 07/15/18 15:41 Abnormal lab findings: Abnormal Labs 07/15/18 07/15/18 07/16/18 15:41 15:41 15:33 WBC 4.1 L Plt Count [address] [place] % (Auto) 10.1 H Lymph # 0.6 L Seg Neutrophils % 73.6 H BUN Creatinine 0.6 L Glucose 101 H Total Bilirubin 1.50 H AST 52 H Total Protein Albumin 3.4 L Hepatitis C Antibody Reactive A 07/18/18 07/18/18 05:27 05:27 WBC Plt Count [address] [place] % (Auto) Lymph # Seg Neutrophils % BUN 22 H Creatinine 0.6 L Glucose 143 H Total Bilirubin AST Total Protein 6.0 L Albumin 3.2 L Hepatitis C Antibody Chest x-ray: report reviewed, image reviewed
[2018-07-23 09:18] LABS: Hepatitis B Surface Antigen Nonreactive (Negative)
== END 2018-07-19 15:10 | disposition home or self-care (01) | DRG 202 ==
LOC: ED 15:13 → 3A 18:30
PROVIDERS: ADMIT Internal Medicine; ATTEND Internal Medicine
DX: J20.9 Acute bronchitis, unspecified (principal); J44.0 Chronic obstructive pulmonary disease with (acute) lower respiratory infection; J44.1 Chronic obstructive pulmonary disease with (acute) exacerbation; F17.210 Nicotine dependence, cigarettes, uncomplicated; F32.9 Major depressive disorder, single episode, unspecified; D69.6 Thrombocytopenia, unspecified; L84 Corns and callosities; F43.20 Adjustment disorder, unspecified; B19.20 Unspecified viral hepatitis C without hepatic coma; Z71.6 Tobacco abuse counseling; Z90.49 Acquired absence of other specified parts of digestive tract; Z79.899 Other long term (current) drug therapy
CPT/HCPCS: 36415; 71045; 76705; 80053; 80074; 84484; 85025; 85027; 85610; 85730; 93005; 93010; 94640; 94760; 96365; 96375; 99285; 99406; G0378; J0456; J0696; J1644; J2930; J3475; J7050

== ENCOUNTER 2018-12-24 17:04 | Inpatient (IN) | payer SELFPAY ==
--- NOTE | 2018-12-24 17:08 | Event Note ---
ED Screening Note ED Screening Note: pt crying in pain in triage co lbp for months EMS reports feces on stretcher denies etoh/drugs/cig denies being on meds This initial assessment/diagnostic orders/clinical plan/treatment(s) is/are subject to change based on patients health status, clinical progression and re- assessment by fellow clinical providers in the ED. Further treatment and workup at subsequent clinical providers discretion. Patient/guardian urged not to elope from the ED as their condition may be serious if not clinically assessed and managed. Initial orders include: to ER for eval
[2018-12-24] MEDS ORDERED: NACL 0.9% 1000 ML 1,000 ML IV ONE ×2 (17:22→20:14)
[2018-12-24] MEDS ORDERED: DILAUDID IV ONE ×3 (17:24→22:12)
--- NOTE | 2018-12-24 17:26 | Emergency Department Report ---
ED General Adult HPI - General Chief complaint: Back Pain/Injury Stated complaint: BACK PAIN X2 MONTHS Time Seen by Provider: 12/24/18 17:20 Source: patient Mode of arrival: Wheelchair Limitations: No Limitations - History of Present Illness Initial comments: Patient is a 58-year-old male that presents emergency room with complaints of midline back pain and right flank pain. Patient states his back pain started 2 months ago however 2 days ago his back pain worsened. Patient states his back pain as a 10 out of 10. Patient states his back pain radiating to the right flank and right lower quadrant. Patient states his pain is worse with movement and better with rest and remaining still. Patient states he does not have a history of high blood pressure. Patient's upper front extremely high in triage. -: Sudden Consistency: constant Improves with: rest Worsens with: movement Associated Symptoms: denies: confusion, chest pain, cough, diaphoresis, fever/chills, headaches, loss of appetite, malaise, nausea/vomiting, rash, seizure, shortness of breath, syncope, weakness - Related Data Home Medications Medication Instructions Recorded Confirmed Last Taken No Known Home Medications [No 12/24/18 12/24/18 Unknown Reported Home Medications] Allergies Allergy/AdvReac Type Severity Reaction Status Date / Time No Known Allergies Allergy Unverified 07/15/18 15:15 ED Review of Systems ROS: Stated complaint: BACK PAIN X2 MONTHS Other details as noted in HPI Constitutional: denies: chills, fever Eyes: denies: eye pain, eye discharge, vision change ENT: denies: ear pain, throat pain Respiratory: denies: cough, shortness of breath, wheezing Cardiovascular: denies: chest pain, palpitations Endocrine: no symptoms reported Gastrointestinal: abdominal pain. denies: nausea, diarrhea Genitourinary: denies: urgency, dysuria Musculoskeletal: back pain. denies: joint swelling, arthralgia Skin: denies: rash, lesions Neurological: denies: headache, weakness, paresthesias Psychiatric: denies: anxiety, depression Hematological/Lymphatic: denies: easy bleeding, easy bruising ED Past Medical Hx - Past Medical History Previous Medical History?: Yes Hx COPD: Yes - Surgical History Past Surgical History?: Yes Hx Cholecystectomy: Yes - Family History Family history: no significant - Social History Smoking Status: Current Every Day Smoker Substance Use Type: None - Medications Home Medications: Home Medications Medication Instructions Recorded Confirmed Last Taken Type No Known Home Medications [No 12/24/18 12/24/18 Unknown History Reported Home Medications] ED Physical Exam - General Limitations: No Limitations General appearance: alert, in no apparent distress - Head Head exam: Present: atraumatic, normocephalic - Eye Eye exam: Present: normal appearance, PERRL Pupils: Present: normal accommodation - ENT ENT exam: Present: normal exam, mucous membranes moist - Neck Neck exam: Present: normal inspection - Respiratory Respiratory exam: Present: normal lung sounds bilaterally. Absent: respiratory distress - Cardiovascular Cardiovascular Exam: Present: regular rate, normal rhythm. Absent: systolic murmur, diastolic murmur, rubs, gallop - GI/Abdominal GI/Abdominal exam: Present: soft, tenderness (right flank tenderness. Right lower quadrant tenderness), normal bowel sounds - Rectal Rectal exam: Present: deferred - Extremities Exam Extremities exam: Present: normal inspection - Back Exam Back exam: Present: normal inspection, CVA tenderness (R), CVA tenderness (L), vertebral tenderness - Neurological Exam Neurological exam: Present: alert, oriented X3 - Psychiatric Psychiatric exam: Present: normal affect, normal mood - Skin Skin exam: Present: warm, dry, intact, normal color. Absent: rash ED Course Vital Signs 12/24/18 12/24/18 12/24/18 15:44 15:45 16:00 Temperature Pulse Rate Respiratory Rate Blood Pressure 138/78 138/78 Blood Pressure [Left] O2 Sat by Pulse 99 100 98 Oximetry 12/24/18 12/24/18 12/24/18 16:16 17:14 17:24 Temperature 98.3 F Pulse Rate 100 H 77 Respiratory 16 16 Rate Blood Pressure 138/78 213/127 Blood Pressure [Left] O2 Sat by Pulse 99 94 Oximetry 12/24/18 12/24/18 12/24/18 17:31 17:45 18:00 Temperature Pulse Rate 71 58 L 56 L Respiratory 15 14 18 Rate Blood Pressure 148/85 127/71 132/79 Blood Pressure [Left] O2 Sat by Pulse 98 95 94 Oximetry 12/24/18 12/24/18 12/24/18 18:15 18:31 18:45 Temperature Pulse Rate 54 L 79 52 L Respiratory 18 22 18 Rate Blood Pressure 132/79 167/103 140/88 Blood Pressure [Left] O2 Sat by Pulse 95 94 94 Oximetry 12/24/18 12/24/18 12/24/18 19:13 23:05 23:31 Temperature 97.7 F Pulse Rate 62 59 L Respiratory 18 19 15 Rate Blood Pressure 138/87 Blood Pressure 166/100 [Left] O2 Sat by Pulse 95 95 95 Oximetry - Reevaluation(s) Reevaluation #1: Given pain meds and blood pressure is better. Patient states his pain is better. 12/24/18 18:09 Reevaluation #2: Patient complaining of nausea vomiting. Patient vomiting. Patient given Zo moise. 12/24/18 18:35 Vomiting has stopped. She states she is feeling better. Patient states his p ain is better. 12/24/18 18:45 Reevaluation #3: Patient having projectile vomiting. Patient will be giving another dose of Zofran. Patient also given fluids 12/24/18 20:15 Reevaluation #4: Discussed all results with patient. Patient will be given a by mouth challenge 12/24/18 21:20 Patient given by mouth challenge and patient unable to tolerate by mouth intake. Patient complaining of nausea and vomiting with a minimal amount of water. P atient is also complaining of worsening back pain. 12/24/18 21:34 - Consultations Consultation #1: Orthopedic consultation 12/24/18 21:35 I discussed case with Dr. Trujillo, orthopedist. Dr. Trujillo recommends admission for pain management. 12/24/18 21:39 Consultation #2: Hospitalist consult for admission. Hospitalist to admit patient. 12/24/18 21:39 ED Medical Decision Making - Lab Data Result diagrams: 12/24/18 17:32 12/24/18 17:32 - EKG Data -: EKG Interpreted by Ar EKG shows normal: sinus rhythm, axis, intervals, QRS complexes, ST-T waves Rate: normal - Radiology Data Radiology results: report reviewed, image reviewed CHEST 1 VIEW INDICATION: hbp. COMPARISON: 07/15/2018. FINDINGS: Support devices: None. Heart: Within normal limits. Lungs/Pleura: No acute air space or interstitial disease. Additional findings: None. IMPRESSION: No acute abnormality CT ABDOMEN AND PELVIS WITH AND WITHOUT CONTRAST INDICATION: Back pain. Unspecified flank pain. COMPARISON: No relevant prior imaging study available. TECHNIQUE: Axial, coronal and sagittal CT imaging of the abdomen and pelvis was performed before and after injection of 100 cc Omnipaque [address] scans at this location are performed using CT dose reduction for ALARA by means of automated exposure control. FINDINGS: LOWER CHEST: No significant abnormality. LIVER: Cirrhotic without suspicious lesions. The portal vein is patent and dilated. A recanalized umbilical vein is seen. BILIARY: Prior cholecystectomy. A dilated fluid-filled structure located immediately adjacent to the cholecystectomy clips may represent a cystic duct remnant. No biliary ductal dilatation is seen. PANCREAS: No significant abnormality. SPLEEN: The spleen is enlarged and measures 16 cm in length without suspicious lesions. The splenic vein is dilated and patent. ADRENALS: No significant abnormality. KIDNEYS AND URETERS: No suspicious renal lesions, stones or hydroureteronephrosis. GI TRACT: No significant abnormality of the stomach, small bowel or colon. Unremarkable appendix. PERITONEUM: No free fluid. No free air. No fluid collection. There is increased attenuation of the mesenteric fat with venous congestion. LYMPH NODES: No significant adenopathy. VASCULATURE: The aorta is normal in caliber with mild generalized atherosclerosis. Gastroesophageal varices are noted. URINARY BLADDER: No significant abnormality. REPRODUCTIVE ORGANS: No significant abnormality. ADDITIONAL FINDINGS: None. SKELETAL SYSTEM: No acute abnormality. A compression fracture of L1 appears chronic. There are degenerative changes of the spine and SI joints. IMPRESSION: 1. No acute abnormality of the genitourinary structures is seen to explain the patient's pain. 2. Cirrhosis with portal hypertension. 3. Additional findings as above. - Medical Decision Making Patient is a 58-year-old male that presents emergency room with complaints of severe back pain and abdominal pain. Patient given pain medications in the ER and patient has had intractable nausea and vomiting. Patient's abdominal CT done and shows no acute intra-abdominal process however shows a chronic compression fracture L1. Orthopedist counselor recommends admission for pain management due to the intractable nature of his pain. Patient was admitted because of intractable nausea vomiting. Patient's labs unremarkable. - Differential Diagnosis back pain. Abdominal pain. Flank pain. Kidney stone. UTI. Critical Care Time: Yes Critical care attestation.: If time is entered above; I have spent that time in minutes in the direct care of this critically ill patient, excluding procedure time. Critical Care Time: 35 minutes ED Disposition Clinical Impression: Flank pain, Intractable back pain Back pain Qualifiers: Back pain location: low back pain Chronicity: acute Back pain laterality: midline Sciatica presence: without sciatica Qualified Code(s): M54.5 - Low back pain Abdominal pain Qualifiers: Abdominal location: right lower quadrant Qualified Code(s): R10.31 - Right lower quadrant pain Nausea & vomiting Qualifiers: Vomiting type: unspecified Vomiting Intractability: intractable Qualified Code(s): R11.2 - Nausea with vomiting, unspecified Compression fracture of L1 vertebra Qualifiers: Encounter type: initial encounter Qualified Code(s): S32.010A - Wedge compression fracture of first lumbar vertebra, initial encounter for closed fracture Hypertension Qualifiers: Hypertension type: essential hypertension Qualified Code(s): I10 - Essential (primary) hypertension Disposition: DC-09 OP ADMIT IP TO THIS HOSP Is pt being admited?: Yes Does the pt Need Aspirin: No Condition: Critical Time of Disposition: 21:37
[2018-12-24 17:46] LABS: Basophils % (Auto) 0.6 % (0.0-1.8); Eosinophils # (Auto) 0.1 K/mm3 (0.0-0.4); Hematocrit 39.6 % (35.5-45.6); Hemoglobin 13.7 gm/dl (11.8-15.2); Lymphocytes # (Auto) 1.1 K/mm3 (1.2-5.4); Lymphocytes % (Auto) 20.9 % (13.4-35.0); Mean Corpuscular HGB Conc 35 % (32-34); Mean Corpuscular Volume 93 fl (84-94); Monocytes # (Auto) 0.5 K/mm3 (0.0-0.8); Monocytes % (Auto) 9.8 % (0.0-7.3); Platelet Count 115 K/mm3 (140-440); Red Blood Count 4.26 M/mm3 (3.65-5.03); Red Cell Distribution Width 14.5 % (13.2-15.2)
[2018-12-24 18:12] LABS: Alanine Aminotransferase 30 units/L (7-56); Albumin 3.6 g/dL (3.9-5); BUN/Creatinine Ratio 14; Blood Urea Nitrogen 13 mg/dL (9-20); Calcium 8.9 mg/dL (8.4-10.2); Hemolysis Index 10
--- NOTE | 2018-12-24 18:16 | XRay Report ---
CHEST 1 VIEW INDICATION: hbp. COMPARISON: 07/15/2018. FINDINGS: Support devices: None. Heart: Within normal limits. Lungs/Pleura: No acute air space or interstitial disease. Additional findings: None. IMPRESSION: No acute abnormality. Signer Name: Glenn Boss MD Signed: 12/24/2018 6:12 PM Workstation Name: [id number]
[2018-12-24] MEDS ORDERED: ZOFRAN ONE (18:27)
[2018-12-24] MEDS ORDERED: ZOFRAN IV ONE ×2 (18:29→20:14)
--- NOTE | 2018-12-24 20:42 | Cat Scan Report ---
CT ABDOMEN AND PELVIS WITH AND WITHOUT CONTRAST INDICATION: Back pain. Unspecified flank pain. COMPARISON: No relevant prior imaging study available. TECHNIQUE: Axial, coronal and sagittal CT imaging of the abdomen and pelvis was performed before and after injection of 100 cc Omnipaque [address] scans at this location are performed using CT dose reduction for ALARA by means of automated exposure control. FINDINGS: LOWER CHEST: No significant abnormality. LIVER: Cirrhotic without suspicious lesions. The portal vein is patent and dilated. A recanalized umb ilical vein is seen. BILIARY: Prior cholecystectomy. A dilated fluid-filled structure located immediately adjacent to the cholecystectomy clips may represent a cystic duct remnant. No biliary ductal dilatation is seen. PANCREAS: No significant abnormality. SPLEEN: The spleen is enlarged and measures 16 cm in length without suspicious lesions. The splenic v ein is dilated and patent. ADRENALS: No significant abnormality. KIDNEYS AND URETERS: No suspicious renal lesions, stones or hydroureteronephrosis. GI TRACT: No significant abnormality of the stomach, small bowel or colon. Unremarkable appendix. PERITONEUM: No free fluid. No free air. No fluid collection. There is increased attenuation of the me senteric fat with venous congestion. LYMPH NODES: No significant adenopathy. VASCULATURE: The aorta is normal in caliber with mild generalized atherosclerosis. Gastroesophageal v arices are noted. URINARY BLADDER: No significant abnormality. REPRODUCTIVE ORGANS: No significant abnormality. ADDITIONAL FINDINGS: None. SKELETAL SYSTEM: No acute abnormality. A compression fracture of L1 appears chronic. There are degene rative changes of the spine and SI joints. IMPRESSION: 1. No acute abnormality of the genitourinary structures is seen to explain the patient's pain. 2. Cirrhosis with portal hypertension. 3. Additional findings as above. Signer Name: Vic Dominguez MD Signed: 12/24/2018 8:37 PM Workstation Name: [id number]
--- NOTE | 2018-12-24 22:05 | History and Physical Report ---
<PACO AVITIA - Last Filed: 12/25/18 01:16> History of Present Illness Date of examination: 12/24/18 Date of admission: 12/24/2018 Chief complaint: Back pain History of present illness: Patient is a 58-year-old male with PMHx of HTN, COPD, Tobacco used disorder, chronic back pain who presents to the ER with complaints of midline back pain and right flank pain. Patient states that he has been having back pain for 2 months but 2 days ago, the symptoms worsen, his pain become constant at an intensity of 10 out of 10. Pt states that the pain is located on the middle of the lower back, it radiates to the right flank and right lower quadrant of his abdomen. Patient reports that any activity worsen the pain, he is unable to walk, stand or even sitting for long period without significant discomfort, pt states the pain improve only with rest. In the ER, pt's BP was elevated at 213/127, he had a CT of the lumbar spine shows chronic compression fracture of L1, orthopedic was consulted and pt is admitted for further evaluation and treatment. Past History Past Medical History: COPD, hypertension Past Surgical History: cholecystectomy Social history: smoking Family history: no significant family history Medications and Allergies Allergies Allergy/AdvReac Type Severity Reaction Status Date / Time No Known Allergies Allergy Unverified 07/15/18 15:15 Home Medications Medication Instructions Recorded Confirmed Last Taken Type No Known Home Medications [No 12/24/18 12/24/18 Unknown History Reported Home Medications] Review of Systems Musculoskeletal: low back pain Exam - Constitutional Vitals: Temp Pulse Resp BP Pulse Ox 98.3 F 52 L 18 140/88 95 12/24/18 17:14 12/24/18 18:45 12/24/18 19:13 12/24/18 18:45 12/24/18 19:13 General appearance: Present: mild distress - EENT Eyes: Present: EOM intact - Respiratory Respiratory effort: normal Respiratory: bilateral: diminished - Cardiovascular Rhythm: regular Heart Sounds: Present: S1 & S2 - Extremities Extremities: no ischemia, No edema Extremity abnormal: edema Peripheral Pulses: within normal limits - Abdominal General gastrointestinal: Present: non-tender, non-distended - Rectal Rectal Exam: deferred - Integumentary Integumentary: Present: warm, dry - Musculoskeletal Musculoskeletal: strength equal bilaterally - Psychiatric Psychiatric: cooperative - Neurologic Neurologic: moves all extremities Results - Labs CBC & Chem 7: 12/24/18 17:32 12/24/18 17:32 Labs: Laboratory Last Values WBC 5.2 K/mm3 (4.5-11.0) 12/24/18 17:32 RBC 4.26 M/mm3 (3.65-5.03) 12/24/18 17:32 Hgb 13.7 gm/dl (11.8-15.2) 12/24/18 17:32 Hct 39.6 % (35.5-45.6) 12/24/18 17:32 MCV 93 fl (84-94) 12/24/18 17:32 MCH 32 pg (28-32) 12/24/18 17:32 MCHC 35 % (32-34) H 12/24/18 17:32 RDW 14.5 % (13.2-15.2) 12/24/18 17:32 Plt Count 115 K/mm3 (140-440) L 12/24/18 17:32 Lymph % (Auto) 20.9 % (13.4-35.0) 12/24/18 17:32 [place] % (Auto) 9.8 % (0.0-7.3) H 12/24/18 17:32 Eos % (Auto) 2.0 % (0.0-4.3) 12/24/18 17:32 Baso % (Auto) 0.6 % (0.0-1.8) 12/24/18 17:32 Lymph # 1.1 K/mm3 (1.2-5.4) L 12/24/18 17:32 [place] # 0.5 K/mm3 (0.0-0.8) 12/24/18 17:32 Eos # 0.1 K/mm3 (0.0-0.4) 12/24/18 17:32 Baso # 0.0 K/mm3 (0.0-0.1) 12/24/18 17:32 Seg Neutrophils % 66.7 % (40.0-70.0) 12/24/18 17:32 Seg Neutrophils # 3.4 K/mm3 (1.8-7.7) 12/24/18 17:32 Sodium 143 mmol/L (137-145) 12/24/18 17:32 Potassium 3.4 mmol/L (3.6-5.0) L 12/24/18 17:32 Chloride 106.8 mmol/L (98-107) 12/24/18 17:32 Carbon Dioxide 25 mmol/L (22-30) 12/24/18 17:32 15 mmol/L 12/24/18 17:32 BUN 13 mg/dL (9-20) 12/24/18 17:32 0.9 mg/dL (0.8-1.5) 12/24/18 17:32 Estimated GFR > 60 ml/min 12/24/18 17:32 14 % 12/24/18 17:32 Glucose 92 mg/dL (75-100) 12/24/18 17:32 POC Glucose 70 (70-105) 12/24/18 17:23 Calcium 8.9 mg/dL (8.4-10.2) 12/24/18 17:32 2.10 mg/dL (0.1-1.2) H 12/24/18 17:32 AST 39 units/L (5-40) 12/24/18 17:32 ALT 30 units/L (7-56) 12/24/18 17:32 122 units/L (35-129) 12/24/18 17:32 < 0.010 ng/mL (0.00-0.029) 12/24/18 17:32 6.6 g/dL (6.3-8.2) 12/24/18 17:32 3.6 g/dL (3.9-5) L 12/24/18 17:32 1.2 % 12/24/18 17:32 Assessment and Plan Assessment and plan: 1. Intractable back pain 2. Chronic compression fx L1 (per CT) 3. Bilateral spondilosis L5-S1 4. Accelerated HTN 5. Hypokalemia 6. COPD (stable) 7. Tobacco used disorder Plan: Admit to med/surg for intractable back pain Continue pain control with Dilaudid PRN Awaiting ortho eval Replace potassium Resume home meds Continue Nicotine patch Further plan per ortho Advance Directives: Yes VTE prophylaxis?: Chemical Plan of care discussed with patient/family: Yes <KRISTEN STAUFFER - Last Filed: 12/25/18 04:05> History of Present Illness Date of admission: 12/24/18 22:06 Medications and Allergies Active Meds: Active Medications Acetaminophen (Tylenol) 650 mg PO Q4H PRN PRN Reason: Pain MILD(1-3)/Fever >100.5/[place]IL[place]URN Enoxaparin Sodium (Lovenox) 40 mg SUB-Q QDAY BELLE Famotidine (Pepcid) 20 mg IV BID BELLE Hydromorphone HCl (Dilaudid) 0.5 mg IV Q3H PRN PRN Reason: Pain , Severe (7-10) Last Admin: 12/25/18 02:16 Dose: 0.5 mg Documented by: Sodium Chloride (Nacl 0.9% 1000 Ml) 1,000 mls @ 75 mls/hr IV DIRECT BELLE Last Admin: 12/25/18 01:31 Dose: 75 mls/hr Documented by: Magnesium Hydroxide (Milk Of Magnesia) 30 ml PO Q4H PRN PRN Reason: Constipation Ondansetron HCl (Zofran) 4 mg IV Q8H PRN PRN Reason: Nausea And Vomiting Sodium Chloride (Sodium Chloride Flush Syringe 10 Ml) 10 ml IV BID BELLE Sodium Chloride (Sodium Chloride Flush Syringe 10 Ml) 10 ml IV PRN PRN PRN Reason: LINE FLUSH Exam - Constitutional Vitals: Temp Pulse Resp BP Pulse Ox 97.0 F L 66 20 162/102 94 12/25/18 00:54 12/25/18 00:54 12/25/18 01:30 12/25/18 00:54 12/25/18 00:54 Results - Labs CBC & Chem 7: 12/24/18 17:32 12/24/18 17:32 Labs: Laboratory Last Values WBC 5.2 K/mm3 (4.5-11.0) 12/24/18 17:32 RBC 4.26 M/mm3 (3.65-5.03) 12/24/18 17:32 Hgb 13.7 gm/dl (11.8-15.2) 12/24/18 17:32 Hct 39.6 % (35.5-45.6) 12/24/18 17:32 MCV 93 fl (84-94) 12/24/18 17:32 MCH 32 pg (28-32) 12/24/18 17:32 MCHC 35 % (32-34) H 12/24/18 17:32 RDW 14.5 % (13.2-15.2) 12/24/18 17:32 Plt Count 115 K/mm3 (140-440) L 12/24/18 17:32 Lymph % (Auto) 20.9 % (13.4-35.0) 12/24/18 17:32 [place] % (Auto) 9.8 % (0.0-7.3) H 12/24/18 17:32 Eos % (Auto) 2.0 % (0.0-4.3) 12/24/18 17:32 Baso % (Auto) 0.6 % (0.0-1.8) 12/24/18 17:32 Lymph # 1.1 K/mm3 (1.2-5.4) L 12/24/18 17:32 [place] # 0.5 K/mm3 (0.0-0.8) 12/24/18 17:32 Eos # 0.1 K/mm3 (0.0-0.4) 12/24/18 17:32 Baso # 0.0 K/mm3 (0.0-0.1) 12/24/18 17:32 Seg Neutrophils % 66.7 % (40.0-70.0) 12/24/18 17:32 Seg Neutrophils # 3.4 K/mm3 (1.8-7.7) 12/24/18 17:32 Sodium 143 mmol/L (137-145) 12/24/18 17:32 Potassium 3.4 mmol/L (3.6-5.0) L 12/24/18 17:32 Chloride 106.8 mmol/L (98-107) 12/24/18 17:32 Carbon Dioxide 25 mmol/L (22-30) 12/24/18 17:32 15 mmol/L 12/24/18 17:32 BUN 13 mg/dL (9-20) 12/24/18 17:32 0.9 mg/dL (0.8-1.5) 12/24/18 17:32 Estimated GFR > 60 ml/min 12/24/18 17:32 14 % 12/24/18 17:32 Glucose 92 mg/dL (75-100) 12/24/18 17:32 POC Glucose 70 (70-105) 12/24/18 17:23 Calcium 8.9 mg/dL (8.4-10.2) 12/24/18 17:32 2.10 mg/dL (0.1-1.2) H 12/24/18 17:32 AST 39 units/L (5-40) 12/24/18 17:32 ALT 30 units/L (7-56) 12/24/18 17:32 122 units/L (35-129) 12/24/18 17:32 < 0.010 ng/mL (0.00-0.029) 12/24/18 17:32 6.6 g/dL (6.3-8.2) 12/24/18 17:32 3.6 g/dL (3.9-5) L 12/24/18 17:32 1.2 % 12/24/18 17:32 Yellow (Yellow) 12/24/18 22:10 Clear (Clear) 12/24/18 22:10 6.0 (5.0-7.0) 12/24/18 22:10 Ur Specific [place] 1.045 (1.003-1.030) H 12/24/18 22:10 <15 mg/dl mg/dL (Negative) 12/24/18 22:10 Neg mg/dL (Negative) 12/24/18 22:10 Neg mg/dL (Negative) 12/24/18 22:10 Neg (Negative) 12/24/18 22:10 Neg (Negative) 12/24/18 22:10 Neg (Negative) 12/24/18 22:10 2.0 mg/dL (<2.0) 12/24/18 22:10 Ur Leukocyte Esterase Neg (Negative) 12/24/18 22:10 < 1.0 /HPF (0.0-6.0) 12/24/18 22:10 3.0 /HPF (0.0-6.0) 12/24/18 22:10 1+ /HPF 12/24/18 22:10 Presumptive negative 12/24/18 22:10 Presumptive negative 12/24/18 22:10 Ur Barbiturates Screen Presumptive negative 12/24/18 22:10 Ur Phencyclidine Scrn Presumptive negative 12/24/18 22:10 Ur Amphetamines Screen Presumptive negative 12/24/18 22:10 U Benzodiazepines Scrn Presumptive negative 12/24/18 22:10 Presumptive negative 12/24/18 22:10 U Marijuana (THC) Screen Presumptive positive 12/24/18 22:10 Disclamer 12/24/18 22:10 Assessment and Plan Assessment and plan: This 71-year-old man with a history of hypertension, COPD causing emergency room with complaints of lower back pain that got worse over the last 4 days. Admits to falling twice a few weeks ago and hurting his back. Patient with intractable back pain, agree with plan as stated above
[2018-12-24] MEDS ORDERED: MILK OF MAGNESIA PO PRN (22:06)
[2018-12-24] MEDS ORDERED: SODIUM CHLORIDE FLUSH SYRINGE 10 ML IV PRN (22:06)
[2018-12-24] MEDS ORDERED: ZOFRAN IV PRN (22:06)
[2018-12-24 23:16] LABS: Amphetamine Screen,Urine PRESUMPTIVE NEGATIVE; Bilirubin,Urine NEG (Negative); Blood,Urine NEG (Negative); Color,Urine Yellow (Yellow); Mucus,Urine 1+ /HPF; Protein,Urine <15 mg/dL mg/dL (Negative); WBC,Urine < 1.0 /HPF (0.0-6.0)
[2018-12-24 23:17] LABS: Benzodiazepines Screen,Urine PRESUMPTIVE NEGATIVE; Cocaine Screen,Urine PRESUMPTIVE NEGATIVE; Methadone Screen,Urine PRESUMPTIVE NEGATIVE; Opiate Screen,Urine PRESUMPTIVE NEGATIVE
--- NOTE | 2018-12-24 23:23 | Cat Scan Report ---
CT LUMBAR SPINE WITHOUT CONTRAST INDICATION / CLINICAL INFORMATION: back pain. TECHNIQUE: Axial CT images were obtained through the lumbar spine. Sagittal and coronal reformatted images were produced. All CT scans at this location are performed using CT dose reduction for ALARA by means of a utomated exposure control. COMPARISON: None available. FINDINGS: VERTEBRAE: There is mild wedge compression fracture of L1, which appears old.. No retropulsion. The r emainder of the vertebral body heights are normal. ALIGNMENT: There is grade 1 spondylolisthesis at L5-S1. Bilateral spondylolysis present at L5-S1 DISC SPACES: Mild degenerative disc disease is noted at L5-S1. Other disc spaces are fairly well-main tained. FACET JOINTS: Mild facet degenerative changes noted diffusely. SPINAL CANAL: No significant abnormality. SACRUM:No significant abnormality of the visualized sacrum. PARASPINAL SOFT TISSUES: No significant abnormality. ADDITIONAL FINDINGS: None. IMPRESSION: 1. Chronic appearing mild wedge compression fracture of L1. 2. Grade 1 spondylolisthesis at L5-S1. Bilateral spondylolysis at L5-S1. Signer Name: Shelley Martinez MD Signed: 12/24/2018 11:19 PM Workstation Name: [id number]
[2018-12-24 23:49] LABS: Cannabinoid Screen,Urine PRESUMPTIVE POSITIVE
[2018-12-25] MEDS: NACL 0.9% 1000 ML 1,000 ML IV SCH ×2 (01:31→18:09)
[2018-12-25] MEDS: DILAUDID IV PRN ×2 (02:16→09:53)
[2018-12-25] MEDS ORDERED: K-DUR PO ONE (02:24)
[2018-12-25] MEDS ORDERED: HABITROL TD ONE (02:25)
[2018-12-25] MEDS ORDERED: APRESOLINE IV PRN (04:06)
[2018-12-25] MEDS: LOVENOX SUB-Q SCH (09:03)
[2018-12-25] MEDS: SODIUM CHLORIDE FLUSH SYRINGE 10 ML IV SCH ×2 (09:04→21:46)
[2018-12-25] MEDS ORDERED: PEPCID IV SCH (10:00)
[2018-12-25] MEDS ORDERED: LOVENOX SUB-Q SCH (10:00)
--- NOTE | 2018-12-25 13:14 | Progress Note ---
Assessment and Plan 1. Intractable back pain 2. Chronic compression fx L1 (per CT) 3. Bilateral spondilosis L5-S1 4. Accelerated HTN, likely from intractable pain 5. Hypokalemia 6. COPD (stable) 7. Tobacco used disorder 8. Hepatitic cirrhosis with portal hypertension, stable 9. Suspect alcohol abuse - Continue to monitor at [facility] [place] - Pain management as needed - Monitor BP, hydralazine IV as needed - We'll wait ortho and PT eval - Counseled for tobacco cessation and side effects from alcohol abuse - DVT prophylaxis with Lovenox Brief History: 58-year-old male with PMHx of HTN, COPD, Tobacco used disorder, chronic back pain who presents to the ER with complaints of midline back pain and right flank pain. Patient states that he has been having back pain for 2 months but 2 days ago, the symptoms worsen. Seen in the ED where attempts at pain control unsuccessful, no bowel/bladder incontinence, has positive straight leg test. CT abdomen and pelvis showed no acute abnormality but cirrhosis with portal hypertension. [place] showed chronic appearing mild wedge compression fracture at L1. PT cannot consult pending. Radiological data: CT abdomen and pelvis: 1. No acute abnormality of the genitourinary structures is seen to explain the patient's pain. 2. Cirrhosis with portal hypertension. 3. Additional findings as above. Lumber CT: 1. Chronic appearing mild wedge compression fracture of L1. 2. Grade 1 spondylolisthesis at L5-S1. Bilateral spondylolysis at L5-S1. Hospitalist Physical exam: GENERAL: well-developed and well-nourished lying on bed appeared to be in no discomfort. HEENT: Normocephalic. Atraumatic. No conjunctival congestion or icterus. Patient has moist mucous membranes. NECK: Supple. Trachea midline. CHEST/LUNGS: Clear to auscultated bilaterally, breathing nonlabored. No wheezes crackles or rhonchi. HEART/CARDIOVASCULAR: Regular in rate and rhythm. S1 and S2 positive. ABDOMEN: Abdomen is soft, nontender. Patient has normal bowel sounds. SKIN: There is no rash. Warm and dry. NEURO: No focal motor deficit. Follows command. MUSCULOSKELETAL: No joint effusion or tenderness. EXTRIMITY: No edema, no cyanosis or clubbing. PSYCH: Cooperative. Subjective Date of service: 12/25/18 Interval history: Patient seen and examined. Medical records and medication list reviewed. No acute event overnight noted by the RN. Patient denies any chest pain or difficulty breathing. Patient is tolerating diet. Complaints of intractable lower back pain and inability to walk Discussed plan of care at bedside with patient. Objective - Constitutional Vitals: Vital Signs - 12hr 12/25/18 12/25/18 12/25/18 01:30 04:23 11:38 Temperature 98.0 F 98.7 F Pulse Rate 52 L 62 Respiratory 20 20 22 Rate Blood Pressure 140/84 134/85 O2 Sat by Pulse 93 94 Oximetry - Labs CBC & Chem 7: 12/24/18 17:32 12/26/18 11:49 Labs: Abnormal lab results 12/24/18 12/24/18 12/24/18 Range/Units 17:32 17:32 22:10 MCHC 35 H (32-34) % Plt Count 115 L (140-440) K/mm3 [place] % (Auto) 9.8 H (0.0-7.3) % Lymph # 1.1 L (1.2-5.4) K/mm3 Potassium 3.4 L (3.6-5.0) mmol/L Total Bilirubin 2.10 H (0.1-1.2) mg/dL Albumin 3.6 L (3.9-5) g/dL Ur Specific [place] 1.045 H (1.003-1.030)
[2018-12-25] MEDS: FLEXERIL PO SCH ×2 (13:55→21:45)
[2018-12-25] MEDS: PROTONIX IV SCH (13:55)
[2018-12-25] MEDS: REGLAN IV SCH ×2 (17:17→21:45)
[2018-12-25] MEDS: PERCOCET 5/325 PO PRN (18:08)
[2018-12-26] MEDS: PERCOCET 5/325 PO PRN ×2 (04:16→20:00)
[2018-12-26] MEDS: NACL 0.9% 1000 ML 1,000 ML IV SCH (04:19)
[2018-12-26] MEDS: FLEXERIL PO SCH ×3 (08:38→20:01)
[2018-12-26] MEDS: REGLAN IV SCH ×4 (08:38→21:35)
[2018-12-26] MEDS: PROTONIX IV SCH (09:10)
[2018-12-26] MEDS: LOVENOX SUB-Q SCH (09:10)
[2018-12-26] MEDS: SODIUM CHLORIDE FLUSH SYRINGE 10 ML IV SCH ×2 (09:11→21:36)
--- NOTE | 2018-12-26 12:50 | Consultation ---
History of Present Illness - [facility] Consult date: 12/26/18 Consult reason: low back pain History of present illness: 58-year-old male with PMHx of HTN, COPD, Tobacco used disorder, chronic back pain who presents to the ER with complaints of midline back pain and right flank pain. Patient states that he has been having back pain for 2 months but 2 days ago, the symptoms worsen. Seen in the ED where attempts at pain control unsuccessful, no bowel/bladder incont... Past History Past Medical History: COPD, hypertension Past Surgical History: cholecystectomy Social history: smoking Family history: no significant family history Medications and Allergies Allergies Allergy/AdvReac Type Severity Reaction Status Date / Time No Known Allergies Allergy Unverified 07/15/18 15:15 Home Medications Medication Instructions Recorded Confirmed Last Taken Type Cyclobenzaprine [Flexeril 10 MG 10 mg PO TID #30 tablet 12/25/18 Unknown Rx TAB] oxyCODONE /ACETAMINOPHEN [Percocet 2 tab PO Q6H PRN #20 tablet 12/25/18 Unknown Rx 5/325 mg] Active Meds: Active Medications Acetaminophen (Tylenol) 650 mg PO Q4H PRN PRN Reason: Pain MILD(1-3)/Fever >100.5/[place] Cyclobenzaprine HCl (Flexeril) 10 mg PO TID [facility] Last Admin: 12/26/18 08:38 Dose: 10 mg Documented by: Enoxaparin Sodium (Lovenox) 40 mg SUB-Q QDAY [facility] Last Admin: 12/26/18 09:10 Dose: 40 mg Documented by: Hydralazine HCl (Apresoline) 5 mg IV Q6H PRN PRN Reason: Hypertension Sodium Chloride (Nacl 0.9% 1000 Ml) 1,000 mls @ 75 mls/hr IV DIRECT [facility] Last Admin: 12/26/18 04:19 Dose: 75 mls/hr Documented by: Magnesium Hydroxide (Milk Of Magnesia) 30 ml PO Q4H PRN PRN Reason: Constipation Metoclopramide HCl (Reglan) 10 mg IV ACHS [facility] Last Admin: 12/26/18 08:38 Dose: 10 mg Documented by: Ondansetron HCl (Zofran) 4 mg IV Q8H PRN PRN Reason: Nausea And Vomiting Last Admin: 12/25/18 09:03 Dose: 4 mg Documented by: Oxycodone/Acetaminophen (Percocet 5/325) 2 tab PO Q6H PRN PRN Reason: Pain, Moderate (4-6) Last Admin: 12/26/18 04:16 Dose: 2 tab Documented by: Pantoprazole Sodium (Protonix) 40 mg PO DAILY [place] Sodium Chloride (Sodium Chloride Flush Syringe 10 Ml) 10 ml IV BID [place] Last Admin: 12/26/18 09:11 Dose: 10 ml Documented by: Sodium Chloride (Sodium Chloride Flush Syringe 10 Ml) 10 ml IV PRN PRN PRN Reason: LINE FLUSH Physical Examination - Physical exam Narrative exam: L-spine - tender at paraspinal muscles, negative SLR, DTR's sym, STR 4/5... Eyes: PERRL ENT: Positive: clear oral mucosa Respiratory effort: normal Respiratory: bilateral: CTA Rhythm: regular Heart Sounds: Positive: S1 & S2 General gastrointestinal: Positive: soft, non-tender, non-distended, normal bowel sounds Integumentary: clear, warm, dry Neurologic: Positive: CNII-XII intact, moves all extremities, gait normal. Negative: focal deficits - Cervical Spine Neck pain: none Tenderness with palpation: none Full ROM: yes ROM: flexion: normal ROM: extension: normal ROM: rotation right: normal ROM: rotation left: normal ROM: lateral flexion right: normal ROM: lateral flexion left: normal - Lumbar Spine Back pain: none Tenderness with palpation: none Appearance: normal Full ROM: yes ROM: flexion: normal ROM: extension: normal ROM: rotation right: normal ROM: rotation left: normal ROM: lateral flexion right: normal ROM: lateral flexion left: normal Assessment and Plan low back pain recommend - back brace, pain meds and muscle relaxants
--- NOTE | 2018-12-26 16:15 | Discharge Summary ---
Providers - Providers Date of Admission: 12/24/18 22:06 Date of discharge: 12/26/18 Attending physician: PEEWEE FLOWERS 12/24/18 21:44 Consult to Physician [CONS] Routine Comment: Dr. Barney spoke with Dr. Trujillo @ [phone] Consulting Provider: JAMES TRUJILLO Physician Instructions: Reason For Exam: back pain.l1 fx 12/25/18 12:38 Physical Therapy Evaluation and Treat [CONS] Routine Comment: Reason For Exam: placement Primary care physician: [employer]CHNICIAN Hospitalization Condition: Good Hospital course: Brief History: 58-year-old male with PMHx of HTN, COPD, Tobacco used disorder, chronic back pain who presents to the ER with complaints of midline back pain and right flank pain. Patient states that he has been having back pain for 2 months but 2 days ago, the symptoms worsen. Seen in the ED where attempts at pain control unsuccessful, no bowel/bladder incontinence, has positive straight leg test. CT abdomen and pelvis showed no acute abnormality but cirrhosis with portal hypertension. [place] showed chronic appearing mild wedge compression fracture at L1. PT cannot consult pending. Patient was [facility] at [facility]. Given supportive care with Pain management as needed, Monitored BP, hydralazine IV as needed. Ortho consulted and recommended lumbar brace and outpatient follow-up. - Counseled for tobacco cessation and side effects from alcohol abuse -Patient's symptoms improved with supportive care and he was discharged home in stable condition with outpatient follow-up. Radiological data: CT abdomen and pelvis: 1. No acute abnormality of the genitourinary structures is seen to explain the patient's pain. 2. Cirrhosis with portal hypertension. 3. Additional findings as above. L[place] CT: 1. Chronic appearing mild wedge compression fracture of L1. 2. Grade 1 spondylolisthesis at L5-S1. Bilateral spondylolysis at L5-S1. Discharge diagnosis: 1. Intractable back pain, likely from chronic compression fracture and osteoarthritis - CONSULTED ortho recommended medical management with lumbar brace and pain meds as needed 2. Chronic compression fx L1 (per CT), recommended no weightlifting, 3. Bilateral spondilosis L5-S1 4. Accelerated HTN, likely from intractable pain, resolved 5. Hypokalemia, repleted and resolved 6. COPD (stable) 7. Tobacco used disorder 8. Hepatitic cirrhosis with portal hypertension, stable - outpatient follow-up 9. Suspect alcohol abuse Hospitalist Physical exam: GENERAL: well-developed and well-nourished lying on bed appeared to be in no discomfort. HEENT: Normocephalic. Atraumatic. No conjunctival congestion or icterus. Patient has moist mucous membranes. NECK: Supple. Trachea midline. CHEST/LUNGS: Clear to auscultated bilaterally, breathing nonlabored. No wheezes crackles or rhonchi. HEART/CARDIOVASCULAR: Regular in rate and rhythm. S1 and S2 positive. ABDOMEN: Abdomen is soft, nontender. Patient has normal bowel sounds. SKIN: There is no rash. Warm and dry. NEURO: No focal motor deficit. Follows command. MUSCULOSKELETAL: No joint effusion or tenderness. EXTRIMITY: No edema, no cyanosis or clubbing. PSYCH: Cooperative. Disposition: DC-01 TO HOME OR SELFCARE Time spent for discharge: 34 minutes Core Measure Documentation - Palliative Care Palliative Care/ Comfort Measures: Not Applicable - Core Measures Any of the following diagnoses?: none Exam - Constitutional Vitals: Temp Pulse Resp BP Pulse Ox 97.6 F 58 L 22 125/69 96 12/26/18 11:32 12/26/18 11:32 12/26/18 11:32 12/26/18 11:32 12/26/18 11:32 Plan Activity: fall precautions Weight Bearing Status: Non-Weight Bearing Diet: low fat, low salt Follow up with: PRIMARY CAREMD [Primary Care Provider] - 3-5 Days HAYLEE MAHAN MD [Staff Physician] - 7 Days Prescriptions: Cyclobenzaprine [Flexeril 10 MG TAB] 10 mg PO TID #30 tablet oxyCODONE /ACETAMINOPHEN [Percocet 5/325 mg] 2 tab PO Q6H PRN #20 tablet PRN Reason: Pain, Moderate (4-6) Other Discharge Orders: Brace (Amb) Location: None Selected Brace (Amb) Location: None Selected
[2018-12-26] MEDS: TYLENOL PO PRN (17:07)
[2018-12-26] MEDS ORDERED: CATAPRES PO ONE (18:11)
[2018-12-27 06:29] VITALS: BP 142/86
[2018-12-27] MEDS: PERCOCET 5/325 PO PRN (06:32)
[2018-12-27] MEDS: REGLAN IV SCH (08:00)
[2018-12-27] MEDS: FLEXERIL PO SCH (08:00)
[2018-12-27] MEDS ORDERED: PROTONIX PO SCH (10:00)
[2018-12-27] MEDS: LOVENOX SUB-Q SCH (10:08)
[2018-12-27] MEDS: SODIUM CHLORIDE FLUSH SYRINGE 10 ML IV SCH (10:09)
[2018-12-27] MEDS: TYLENOL PO PRN (10:14)
--- NOTE | 2018-12-27 11:06 | Event Note ---
Date: 12/27/18 Patient could not be discharged yesterday as his family member/brother did not come to pick him up from the hospital. He is being d/c today am.
== END 2018-12-27 11:32 | disposition home or self-care (01) | DRG 543 ==
LOC: ED 17:04 → 3A 22:06
PROVIDERS: ADMIT Internal Medicine; ATTEND Internal Medicine
DX: M48.56XA Collapsed vertebra, not elsewhere classified, lumbar region, initial encounter for fracture (principal); K76.6 Portal hypertension; I10 Essential (primary) hypertension; M43.16 Spondylolisthesis, lumbar region; M47.817 Spondylosis without myelopathy or radiculopathy, lumbosacral region; J44.9 Chronic obstructive pulmonary disease, unspecified; F17.210 Nicotine dependence, cigarettes, uncomplicated; R10.31 Right lower quadrant pain; R11.2 Nausea with vomiting, unspecified; G89.29 Other chronic pain; E87.6 Hypokalemia; K74.60 Unspecified cirrhosis of liver; F10.10 Alcohol abuse, uncomplicated; Z90.49 Acquired absence of other specified parts of digestive tract
CPT/HCPCS: 36415; 71045; 72131; 74178; 80053; 80307; 81001; 82962; 84132; 84484; 85025; 93005; 93010; 96361; 96374; 96375; G0378; C9113; J1170; J1650; J2405; J2765; J7030; Q9967

== ENCOUNTER 2018-12-29 18:16 | Emergency (ER) | payer SELFPAY ==
[2018-12-29] MEDS ORDERED: PERCOCET 5/325 PO ONE (18:44)
[2018-12-29] MEDS ORDERED: DECADRON IV ONE (18:45)
[2018-12-29] MEDS ORDERED: TORADOL IV ONE (20:29)
[2018-12-29] MEDS ORDERED: MORPHINE IV ONE (20:29)
[2018-12-29 20:49] VITALS: BP 162/97
--- NOTE | 2018-12-29 20:55 | Emergency Department Report ---
ED Back Pain/Injury HPI - General Chief Complaint: Back Pain/Injury Stated Complaint: BACK PAIN Time Seen by Provider: 12/29/18 20:07 Source: patient, EMS Limitations: No Limitations - History of Present Illness Initial Comments: Patient is a 58-year-old male who is complaining of lower back pain. Patient states he fell a week ago and has some increased of his chronic back pain. Patient's was just released from the hospital yesterday and during his hospitalization was found that he did have a old L1 compression fracture. There was no retropulsion of bone was the spinal column. The patient is here because of pain. Patient has not gotten his prescription filled. Patient denies any bowel or bladder dysfunction. He does have some radiation of his pain down his right leg. Patient's is here mostly just for pain management. - Related Data Previous Rx's Medication Instructions Recorded Last Taken Type Cyclobenzaprine [Flexeril 10 MG 10 mg PO TID #30 tablet 12/25/18 Unknown Rx TAB] oxyCODONE /ACETAMINOPHEN [Percocet 2 tab PO Q6H PRN #20 tablet 12/25/18 Unknown Rx 5/325 mg] Ketorolac [Toradol] 10 mg PO Q6H PRN #12 tablet 12/29/18 Unknown Rx methOCARBAMOL [Robaxin TAB] 500 mg PO Q6H PRN #14 tablet 12/29/18 Unknown Rx traMADol [Ultram] 50 mg PO Q6HR PRN #10 tablet 12/29/18 Unknown Rx Allergies Allergy/AdvReac Type Severity Reaction Status Date / Time No Known Allergies Allergy Unverified 07/15/18 15:15 ED Review of Systems ROS: Stated complaint: BACK PAIN Other details as noted in HPI Comment: All other systems reviewed and negative ED Past Medical Hx - Past Medical History Hx COPD: Yes Additional medical history: FX OF L1 WITH INTRACTABLE BACK PAIN - Surgical History Hx Cholecystectomy: Yes - Social History Smoking Status: Current Every Day Smoker Substance Use Type: Marijuana - Medications Home Medications: Home Medications Medication Instructions Recorded Confirmed Last Taken Type Cyclobenzaprine [Flexeril 10 MG 10 mg PO TID #30 tablet 12/25/18 Unknown Rx TAB] oxyCODONE /ACETAMINOPHEN [Percocet 2 tab PO Q6H PRN #20 tablet 12/25/18 Unknown Rx 5/325 mg] Ketorolac [Toradol] 10 mg PO Q6H PRN #12 tablet 12/29/18 Unknown Rx methOCARBAMOL [Robaxin TAB] 500 mg PO Q6H PRN #14 tablet 12/29/18 Unknown Rx traMADol [Ultram] 50 mg PO Q6HR PRN #10 tablet 12/29/18 Unknown Rx ED Physical Exam - General Limitations: No Limitations General appearance: alert, in no apparent distress, in distress - Head Head exam: Present: atraumatic, normocephalic - Eye Eye exam: Present: normal appearance - ENT ENT exam: Present: mucous membranes moist - Neck Neck exam: Present: normal inspection - Respiratory Respiratory exam: Present: normal lung sounds bilaterally. Absent: respiratory distress, wheezes, rales, rhonchi - Cardiovascular Cardiovascular Exam: Present: regular rate, normal rhythm, normal heart sounds. Absent: systolic murmur, diastolic murmur, rubs, gallop - GI/Abdominal GI/Abdominal exam: Present: soft, normal bowel sounds. Absent: distended, tenderness, guarding, rebound - Rectal Rectal exam: Present: deferred - Extremities Exam Extremities exam: Present: normal inspection - Back Exam Back exam: Present: normal inspection, paraspinal tenderness (right lumbar) - Neurological Exam Neurological exam: Present: alert, oriented X3 - Psychiatric Psychiatric exam: Present: normal affect, normal mood - Skin Skin exam: Present: warm, dry, intact, normal color. Absent: rash ED Course Vital Signs 12/29/18 12/29/18 12/29/18 18:41 19:08 19:31 Temperature 98.4 F Pulse Rate 106 H 79 Respiratory 24 18 16 Rate Blood Pressure 179/120 Blood Pressure 125/79 [Left] O2 Sat by Pulse 96 98 Oximetry 12/29/18 20:47 Temperature Pulse Rate 65 Respiratory 14 Rate Blood Pressure Blood Pressure 162/97 [Left] O2 Sat by Pulse 97 Oximetry ED Medical Decision Making - Medical Decision Making No further imaging is needed. Patient given meds for pain relief. Patient's son is here at this time and we have had a long conversation about the need for orthopedic follow-up. Patient is discharged home. Critical care attestation.: If time is entered above; I have spent that time in minutes in the direct care of this critically ill patient, excluding procedure time. ED Disposition Clinical Impression: Compression fracture of L1 vertebra Qualifiers: Encounter type: subsequent encounter Fracture healing: with routine healing Qualified Code(s): S32.010D - Wedge compression fracture of first lumbar vertebra, subsequent encounter for fracture with routine healing Chronic pain Qualifiers: Chronic pain type: chronic pain syndrome Qualified Code(s): G89.4 - Chronic pain syndrome Disposition: TO HOME OR SELFCARE Is pt being admited?: No Does the pt Need Aspirin: No Condition: Stable Instructions: Vertebral Compression Fracture (ED) Additional Instructions: Please follow up with orthopedic surgery Referrals: JAMES MALONEY MD [Staff Physician] - 3-5 Days Time of Disposition: 20:59
--- NOTE | 2018-12-29 22:26 | XRay Report ---
RIGHT HAND, 3 VIEWS 12/29/2018 INDICATION / CLINICAL INFORMATION: pointer finger injury. COMPARISON: None available. FINDINGS: An ununited fracture through the proximal phalanx of the index finger with prominent soft tissue swel ling is identified. There is old deformity of the distal fifth metacarpal consistent with healed fracture. Signer Name: Rafiq Sotomayor MD Signed: 12/29/2018 10:21 PM Workstation Name: [id number]
== END 2018-12-29 22:00 | disposition home or self-care (01) ==
LOC: ED 18:16
DX: S32.010D Wedge compression fracture of first lumbar vertebra, subsequent encounter for fracture with routine healing (principal); G89.4 Chronic pain syndrome; F17.200 Nicotine dependence, unspecified, uncomplicated; J44.9 Chronic obstructive pulmonary disease, unspecified; X58.XXXA Exposure to other specified factors, initial encounter; Y93.89 Activity, other specified; Y92.89 Other specified places as the place of occurrence of the external cause; Y99.8 Other external cause status
CPT/HCPCS: 73130; J1100; J1885; J2270; 96374; 96375